=== PATIENT | female | born 1940 | race Caucasian/White ===

== ENCOUNTER 2016-12-17 09:56 | Observation (INO) | payer MEDICARE ==
--- NOTE | 2016-12-17 10:29 | ERPHSYRPT ---
- History of Present Illness Time Seen by Provider: 12/17/16 10:22 Source: patient Exam Limitations: no limitations Patient Subjective Stated Complaint: PT BROUGHT TO ED PER EMS FROM HOME-REPORTS PT FELL THIS MORNING-PT HAS BEEN HAVING AN INCREASE IN [place]ALL[place]-REPORTS DIZZINESS- DENIES NUMBNESS OR TINLGING-DENIES PAIN-DENIES SOB-PT STATES SHE THINKS IT IS BECAUSE OF HER MEDICINE ET WANTS THEM CHANGED Triage Nursing Assessment: PT PALE WARM ET [id number] QUESTIONS CORRECTLY-MOVING ALL EXTREMITIES WITH EASE-RESP NONLABORED-PUPILS REACTIVE Physician History: States became dizzy upon arising and fell hitting head on fan/floor. Denies any LOC, blurred vision or headache but noted some intermittent numbness to L side of face before falling. States numbness only lasted a few seconds. No CP , abdominal pain, SOB, cough or recent illnesses. EMS noted SBP elevated around 200's. States previous episodes of dizziness and falling 3 months ago. Denies any traumatic injuries, no hip, neck, back or extremities pain. Witnessed: unwitnessed Prior Episodes: single episode today Timing/Duration: today Precipitating Factors: other (standing) Context: standing Loss of Consciousness: other (no LOC) Charcter of event(s): almost passed out, other (States difficulty speaking) Allergies/Adverse Reactions: morphine Allergy (Verified 12/17/16 10:11) Penicillins Allergy (Verified 12/17/16 10:11) sulfamethoxazole [From Bactrim] Allergy (Verified 12/17/16 10:11) trimethoprim [From Bactrim] Allergy (Verified 12/17/16 10:11) Home Medications: Amlodipine Besylate 10 mg [Norvasc 10 MG] 10 mg PO DAILY 12/17/16 [History] Aspirin 81 gm Chew [Baby Aspirin 81 mg Chew] 81 mg PO DAILY 12/17/16 [ History] Atenolol 50 mg [Tenormin 50 mg] 50 mg PO DAILY 12/17/16 [History] Bumetanide 0.5 mg PO DAILY 12/17/16 [History] Ferrous Sulfate [Iron] 325 mg PO BID 12/17/16 [History] Fluticasone/Salmeterol [Advair 100-50 Diskus] 1 each IH BID 12/17/16 [History] Fluticasone/Vilanterol [Breo Ellipta 100-25 Mcg INH] 1 each IH DAILY 12/17/16 [ History] Levothyroxine Sodium [Synthroid] 125 mcg PO DAILY 12/17/16 [History] Loratadine 10 mg [Claritin 10 mg] 10 mg PO DAILY 12/17/16 [History] Lorazepam 1 mg [Ativan 1 MG] 1 mg PO TID 12/17/16 [History] Losartan Potassium 50 mg [Cozaar 50 MG] 50 mg PO DAILY 12/17/16 [History] Magnesium 250 mg PO BID 12/17/16 [History] Magnesium Oxide 400 mg [Mag-Ox 400] 400 mg PO DAILY 12/17/16 [History] Meclizine HCl 25 mg [Antivert 25 mg] 25 mg PO TID 12/17/16 [History] Meloxicam 7.5 mg [Mobic 7.5 MG] 7.5 mg PO DAILY 12/17/16 [History] Metformin HCl Xr 500 mg [Glucophage XR 500 MG] 500 mg PO BID 12/17/16 [ History] Nadolol [Corgard] 40 mg PO DAILY 12/17/16 [History] Pantoprazole Sodium [Protonix] 40 mg PO DAILY 12/17/16 [History] Piroxicam [Feldene] 10 mg PO BID 12/17/16 [History] Pravastatin Sodium [Pravachol] 20 mg PO DAILY 12/17/16 [History] Prochlorperazine Maleate 5 mg* [Compazine 5 MG] 5 mg PO TID 12/17/16 [History ] Ranitidine HCl [Zantac] 150 mg PO BID 12/17/16 [History] Sertraline HCl [Zoloft] 100 mg PO DAILY 12/17/16 [History] Hx Tetanus, Diphtheria Vaccination/Date Given: No Hx Influenza Vaccination/Date Given: Yes Hx Pneumococcal Vaccination/Date Given: Yes Immunizations Up to Date: Yes - Past Medical History Pertinent Past Medical History: Yes Neurological History: No Pertinent History, TIA ENT History: Cataracts Cardiac History: Angina, High Cholesterol, Hypertension Respiratory History: Asthma, Bronchitis, CHF, Pneumonia Endocrine Medical History: Diabetes Type II, Hyperthyroidism Musculoskeletal History: Arthritis GI Medical History: GERD, Gallbladder Disease, Other History: No Pertinent History Psycho-Social History: Anxiety, Depression Female Reproductive Disorders: No Pertinent History, Other Other Medical History: Possible TIA after knee replacement. Chronic frequent diarrhea. yeast infection - Past Surgical History Past Surgical History: Yes Neuro Surgical History: No Pertinent History Cardiac: No Pertinent History Respiratory: No Pertinent History Gastrointestinal: Cholecystectomy Genitourinary: No Pertinent History Musculoskeletal: Joint Replacement, Orthopedic Surgery Female Surgical History: No Pertinent History Other Surgical History: bilateral hip replacement, right knee replacemen, héctor cataracts - Social History Smoking Status: Never smoker Exposure to second hand smoke: Yes Drug Use: none Patient Lives Alone: No - Female History Hx Now: No - Review of Systems Constitutional: No Fever, No Chills Eyes: No Symptoms, No Vision Changes, No Double Vision Ears, Nose, & Throat: No Symptoms Respiratory: No Cough, No Dyspnea, No Dyspnea on Exertion (BOGGS) Cardiac: No Chest Pain, No Edema, No Palpitations, No Syncope Abdominal/Gastrointestinal: No Abdominal Pain, No Nausea, No Vomiting, No Diarrhea Genitourinary Symptoms: No Dysuria Musculoskeletal: No Back Pain, No Neck Pain Skin: No Rash Neurological: Dizziness, Speech Changes, No Focal Weakness, No Headache, No Sensory Changes Psychological: No Symptoms Endocrine: No Symptoms All Other Systems: Reviewed and Negative Physical Exam - Nursing Vital Signs Nursing Vital Signs: Initial Vital Signs Temperature 98.3 F Temperature Source Oral Pulse Rate 48 Respiratory Rate 16 Blood Pressure [] 171/48 Pain Intensity 0 - Alexandr Coma Scale Best Eye Response (Alexandr): (4) open spontaneously Best Verbal Response ([place]): (5) oriented Best Motor Response (Alexandr): (6) obeys commands Alexandr Total: 15 - Physical Exam General Appearance: no apparent distress, alert Eye Exam: bilateral eye: PERRL, EOMI Ears, Nose, Throat Exam: normal ENT inspection, pharynx normal, moist mucous membranes Neck Exam: normal inspection, non-tender, supple, full range of motion Respiratory: normal breath sounds, lungs clear, No chest tenderness, No respiratory distress Cardiovascular: regular rate/rhythm, capillary refill <2 sec, No murmur, No pulse deficit Gastrointestinal: soft, No tenderness, No distention, No mass Back Exam: normal inspection, normal range of motion, No CVA tenderness, No vertebral tenderness Extremity Exam: normal inspection, normal range of motion, pelvis stable, No tenderness Mental Status: alert, oriented x 3, cooperative technical assistance consultant Exam: normal speech, PERRL, No facial droop Coordination/Gait: normal finger to nose Motor/Sensory: no motor deficit, no sensory deficit, no pronator drift Skin Exam: normal color, warm, dry, No rash SpO2: 97 Oxygen Delivery: Room Air - Course Nursing assessment & vital signs reviewed: Yes EKG Interpreted by Me: RATE, Sinus Gopal, NORMAL AXIS, NORMAL QRS, Non-specific ST Changes, Other (LVH) - Radiology Exams Chest X-ray Interpretation: Teleradiologist Report, Negative - CT Exams Head CT Interpretation: Negative, Tele-radiologist Report, Other Ordered Tests: Active Orders 24 hr Category Date Time Status Accucheck STAT Care 12/17/16 10:35 Active Tree Marker STAT Care 12/17/16 10:35 Active Clean Catch Urine Specimen STAT Care 12/17/16 10:35 Active EKG-ER Only STAT Care 12/17/16 10:35 Active Orthostatic Vital Signs STAT Care 12/17/16 10:35 Active CHEST 1 VIEW (PORTABLE) Stat Exams 12/17/16 10:37 Completed HEAD WITHOUT CONTRAST [CT] Stat Exams 12/17/16 10:37 Completed CBC W DIFF Stat Lab 12/17/16 10:51 Completed CMP Stat Lab 12/17/16 10:51 Completed CULTURE,URINE Stat Lab 12/17/16 10:51 Received TROPONIN Stat Lab 12/17/16 10:51 Completed UA W/ MICROSCOPIC Stat Lab 12/17/16 10:51 Completed Medication Summary Discontinued Medications Generic Name Dose Route Start Last Admin Trade Name Freq PRN Reason Stop Dose Admin Sodium Chloride 500 mls @ 999 mls/hr 12/17/16 12:32 12/17/16 12:52 Sodium Chloride 0.9% 1000 Ml IV 12/17/16 13:02 999 mls/hr .Q31M STA Administration Sodium Chloride Confirm 12/17/16 12:50 Sodium Chloride 0.9% 1000 Ml Administered 12/17/16 12:51 Dose 1,000 mls @ ud .ROUTE .RUST-MED ONE Lab/Rad Data: Laboratory Result Diagrams 12/17/16 10:51 12/17/16 10:51 Laboratory Results 12/17/16 12/17/16 12/17/16 Range/Units 10:51 10:51 10:51 WBC 5.4 (4.0-10.5) K/mm3 RBC 3.70 L (4.1-5.4) M/mm3 Hgb 10.9 L (12.0-16.0) gm/dl Hct 32.1 L (35-47) % MCV 86.8 (78-100) fl MCH 29.4 (26-32) pg MCHC 34.0 (32-36) g/dl RDW 13.3 (11.5-14.0) % Plt Count 163 (150-450) K/mm3 MPV 12.2 H (6-9.5) fl Gran % 74.4 H (36.0-66.0) % Lymphocytes % 14.2 L (24.0-44.0) % Monocytes % 11.0 (0.0-12.0) % Eosinophils % 0.2 (0.00-5.0) % Basophils % 0.2 (0.0-0.4) % Basophils # 0.01 (0-0.4) Sodium 126 L (136-145) mEq/L Potassium 4.1 (3.5-5.1) mEq/L Chloride 85 L (98-107) mEq/L Carbon Dioxide 31.9 (21-32) mEq/L Anion Gap 13.1 (5-15) MEQ/L BUN 35 H (9-20) mg/dL Creatinine 1.68 H (0.55-1.30) mg/dl Estimated GFR 32 ML/MIN Glucose 112 H (70-110) MG/DL Calcium 9.9 (8.5-10.1) mg/dL Total Bilirubin 0.70 (0.2-1.0) mg/dL AST 23 (15-37) U/L ALT 16 (12-78) U/L Alkaline Phosphatase 46 (46-116) U/L Troponin I 0.027 (0.000-0.056) ng/ml Serum Total Protein 8.7 H (6.4-8.2) gm/dL Albumin 4.1 (3.4-5.0) g/dL Ur Collection Type CCMS Urine Color COLORLESS (YELLOW) Urine Appearance CLEAR (CLEAR) Urine pH 7.0 (5-6) Ur Specific [place] 1.015 (1.005-1.025) Urine Protein 30 (Negative) Urine Glucose (UA) NEGATIVE (NEGATIVE) mg/dL Urine Ketones NEGATIVE (NEGATIVE) Urine Nitrite NEGATIVE (NEGATIVE) Urine Bilirubin NEGATIVE (NEGATIVE) Urine Urobilinogen 0.2 (0-1) mg/dL Urine WBC (Auto) TRACE (NEGATIVE) Urine RBC (Auto) TRACE HEMOLYZED (0-5) [place]ul Urine Microscopic RBC 0-2 (0-2) /HPF Urine Microscopic WBC 2-5 (0-5) /HPF Ur Epithelial Cells FEW (FEW) /HPF Urine Bacteria MANY (NEGATIVE) /HPF Specimen Received 12/17 1100 - Progress Progress: improved Progress Note: 12/17/16 12:01 12/17/16 12:34 Pt. given NS. Discussed with : Hollis (Notified and agreed to admission) Counseled pt/family regarding: lab results, diagnosis, rad results - Departure Time of Disposition: 12:52 Departure Disposition: Observation Clinical Impression: Hyponatremia, Dizziness Clinical Impression: (Ruled Out): Chest pain Condition: Stable Critical Care Time: No Referrals: ITZEL MARTINEZ MD [Primary Care Provider] -
[2016-12-17 11:02] LABS: BASOPHIL % 0.2 % (0.0-0.4); Eosinophil % 0.2 % (0.00-5.0); Granulocytes % 74.4 % (36.0-66.0); Lymphocytes % 14.2 % (24.0-44.0); Mean Cell Volume 86.8 fl (78-100); Mean Platelet Volume 12.2 fl (6-9.5); Platelet Count 163 K/mm3 (150-450); Red Cell Distribution Width 13.3 % (11.5-14.0); White Blood Count 5.4 K/mm3 (4.0-10.5)
[2016-12-17 11:03] LABS: Mean Corpuscular Hemoglobin 29.4 pg (26-32)
[2016-12-17 11:11] LABS: Collection Type CCMS
[2016-12-17 11:12] LABS: Bacteria MANY /HPF (NEGATIVE); COMPLETE URINE MICROSCOPIC? YES; Epithelial Cells FEW /HPF (FEW)
[2016-12-17 11:13] LABS: ADD URINE CULTURE? YES (NO)
--- NOTE | 2016-12-17 11:23 | XRAY ---
Indication: Posterior head injury following fall. Multiple contiguous axial images obtained through the head without contrast. Comparison: January 25, 2016. Stable age-appropriate global atrophy and ventricular prominence. No acute intracranial hemorrhage, abnormal extra axial fluid collection, or mass effect. Fourth ventricle is midline. Bony calvarium intact. Visualized paranasal sinuses and mastoid air cells are pneumatized and clear. Impression: Stable atrophy and ventricular prominence. No new/acute intracranial abnormalities. CTDI 51.37
--- NOTE | 2016-12-17 11:26 | XRAY ---
Indication: Cough. Status post fall. Comparison: April 21, 2016. Portable chest again demonstrates normal heart and lungs. Bony thorax intact with mild osteopenia. No new/acute findings.
[2016-12-17 11:31] LABS: ALBUMIN 4.1 g/dL (3.4-5.0); ANION GAP 13.1 MEQ/L (5-15); BILIRUBIN,TOTAL 0.7 mg/dL (0.2-1.0); Carbon Dioxide 31.9 mEq/L (21-32); Potassium 4.1 mEq/L (3.5-5.1); TROPONIN 0.027 ng/ml (0.000-0.056); Total Protein 8.7 gm/dL (6.4-8.2)
[2016-12-17] MEDS ORDERED: Sodium Chloride 0.9% 1000 ML 1,000 ML ONE (12:50)
[2016-12-17] MEDS: Sodium Chloride 0.9% 1000 ML 1,000 ML IV SCH (17:11)
[2016-12-17] MEDS ORDERED: Ativan 0.5 MG PO PRN (19:28)
[2016-12-17] MEDS ORDERED: ADVAIR HFA 45/21 COMMON CANISTER IH SCH (20:00)
[2016-12-17] MEDS: Compazine 5 MG PO SCH (20:56)
[2016-12-17] MEDS: FEOSOL 325 MG PO SCH (20:56)
[2016-12-17] MEDS: ANTIVERT 25 MG PO SCH (20:56)
[2016-12-17] MEDS: Pepcid 20 MG PO SCH (20:56)
[2016-12-17] MEDS ORDERED: ZOCOR 20MG PO SCH (22:00)
[2016-12-18] MEDS: Sodium Chloride 0.9% 1000 ML 1,000 ML IV SCH (04:41)
[2016-12-18 06:58] LABS: ANION GAP 11.4 MEQ/L (5-15); Carbon Dioxide 29.3 mEq/L (21-32); Potassium 3.7 mEq/L (3.5-5.1)
[2016-12-18] MEDS ORDERED: Glucophage XR 500 MG PO SCH (08:00)
[2016-12-18] MEDS: FEOSOL 325 MG PO SCH (09:52)
[2016-12-18] MEDS: Pepcid 20 MG PO SCH (09:52)
[2016-12-18] MEDS: ANTIVERT 25 MG PO SCH (09:53)
[2016-12-18] MEDS: Compazine 5 MG PO SCH (09:53)
[2016-12-18] MEDS: TENORMIN 50 MG PO SCH ×2 (09:56→12:24)
[2016-12-18] MEDS ORDERED: Mobic 7.5 MG PO SCH (10:00)
[2016-12-18] MEDS ORDERED: ECOTRIN 81 MG PO SCH (10:00)
[2016-12-18] MEDS ORDERED: NON-FORMULARY ITEM (Sertraline Hcl [Zoloft] 100 MG) PO SCH (10:00)
[2016-12-18] MEDS ORDERED: MAG-OX 400 PO SCH (10:00)
[2016-12-18] MEDS ORDERED: BABY ASPIRIN 81 MG CHEW PO SCH (10:00)
[2016-12-18] MEDS ORDERED: ZOLOFT 50 MG TABLET PO SCH (10:00)
[2016-12-18] MEDS ORDERED: NORVASC 5 MG PO SCH (10:00)
[2016-12-18] MEDS ORDERED: Protonix 40MG Tablet PO SCH (10:00)
[2016-12-18] MEDS ORDERED: CLARITIN 10 MG PO SCH (10:00)
[2016-12-18] MEDS ORDERED: Advair Hfa 115/21 Common canister IH SCH (10:00)
[2016-12-18] MEDS ORDERED: NON-FORMULARY ITEM (Amlodipine Besylate 10 Mg [Norvasc 10 Mg] 10 MG) PO SCH (10:00)
[2016-12-18] MEDS ORDERED: NADOLOL PO SCH (10:00)
[2016-12-18] MEDS ORDERED: BUMETANIDE 0.5 MG PO SCH (10:00)
[2016-12-18] MEDS ORDERED: BUMEX 1 MG PO SCH (10:00)
[2016-12-18] MEDS ORDERED: Cozaar 50 MG PO SCH (10:00)
[2016-12-18] MEDS ORDERED: SYNTHROID 125 MCG PO SCH (10:00)
[2016-12-18 12:25] VITALS: PULSE 58
[2016-12-18 12:28] VITALS: BP 176/80; O2SAT 96
--- NOTE | 2016-12-18 12:48 | PCM.SSS ---
History of Present Illness - Chief Complaint Chief Complaint: fall at home History of Present Illness: is a 75 year old female.States became dizzy upon arising and fell hitting head on fan/floor. Denies any LOC, blurred vision or headache but noted some intermittent numbness to L side of face before falling. States numbness only lasted a few seconds. No CP, abdominal pain, SOB, cough or recent illnesses. EMS noted SBP elevated around 200's. States previous episodes of dizziness and falling 3 months ago. Denies any traumatic injuries, no hip, neck, back or extremities pain. - Review of Systems Constitutional: No Fever, No Chills Eyes: No Symptoms Ears, Nose, & Throat: No Symptoms Respiratory: No Cough, No Short Of Breath Cardiac: No Chest Pain, No Edema, No Syncope Abdominal/Gastrointestinal: No Abdominal Pain, No Nausea, No Vomiting, No Diarrhea Genitourinary Symptoms: No Dysuria Musculoskeletal: No Back Pain, No Neck Pain Skin: No Rash Neurological: No Dizziness, No Focal Weakness, No Sensory Changes Psychological: No Symptoms Endocrine: No Symptoms Hematologic/Lymphatic: No Symptoms Immunological/Allergic: No Symptoms Medications & Allergies Home Medications: Home Medication List Amlodipine Besylate 10 mg [Norvasc 10 MG] 10 mg PO DAILY 12/17/16 [History Confirmed 12/17/16] Aspirin 81 gm Chew [Baby Aspirin 81 mg Chew] 81 mg PO DAILY 12/17/16 [ History Confirmed 12/17/16] Atenolol 50 mg [Tenormin 50 mg] 50 mg PO DAILY 12/17/16 [History Confirmed 12/17/16] Bumetanide 0.5 mg PO DAILY 12/17/16 [History Confirmed 12/17/16] Ferrous Sulfate [Iron] 325 mg PO BID 12/17/16 [History Confirmed 12/17/16] Fluticasone/Salmeterol 45/21 [Advair Hfa 45-21 Mcg Inhaler] 2 puffs IH BID 12/17/16 [History Confirmed 12/17/16] Fluticasone/Vilanterol [Breo Ellipta 100-25 Mcg INH] 1 each IH DAILY 12/17/16 [ History Confirmed 12/17/16] Levothyroxine Sodium [Synthroid] 125 mcg PO DAILY 12/17/16 [History Confirmed ] Loratadine 10 mg [Claritin 10 mg] 10 mg PO DAILY 12/17/16 [History Confirmed 12/17/16] Lorazepam 1 mg [Ativan 1 MG] 0.5 mg PO BID PRN 12/17/16 [History Confirmed 12/17/16] Losartan Potassium 50 mg [Cozaar 50 MG] 50 mg PO DAILY 12/17/16 [History Confirmed 12/17/16] Magnesium 250 mg PO BID 12/17/16 [History Confirmed 12/17/16] Magnesium Oxide 400 mg [Mag-Ox 400] 400 mg PO DAILY 12/17/16 [History Confirmed 12/17/16] Meclizine HCl 25 mg [Antivert 25 mg] 25 mg PO TID 12/17/16 [History Confirmed 12/17/16] Meloxicam 7.5 mg [Mobic 7.5 MG] 7.5 mg PO DAILY 12/17/16 [History Confirmed 12/17/16] Metformin HCl Xr 500 mg [Glucophage XR 500 MG] 500 mg PO BID 12/17/16 [ History Confirmed 12/17/16] Nadolol [Corgard] 40 mg PO DAILY 12/17/16 [History Confirmed 12/17/16] Pantoprazole Sodium [Protonix] 40 mg PO DAILY 12/17/16 [History Confirmed ] Piroxicam [Feldene] 10 mg PO BID 12/17/16 [History Confirmed 12/17/16] Pravastatin Sodium [Pravachol] 20 mg PO HS 12/17/16 [History Confirmed 12/17/16] Prochlorperazine Maleate 5 mg* [Compazine 5 MG] 5 mg PO TID 12/17/16 [ History Confirmed 12/17/16] Ranitidine HCl [Zantac] 150 mg PO BID 12/17/16 [History Confirmed 12/17/16] Sertraline HCl [Zoloft] 100 mg PO DAILY 12/17/16 [History Confirmed 12/17/16] Allergies/Adverse Reactions: Allergies Allergy/AdvReac Type Severity Reaction Status Date / Time morphine Allergy Verified 12/17/16 10:11 Penicillins Allergy Verified 12/17/16 10:11 sulfamethoxazole Allergy Verified 12/17/16 10:11 [From Bactrim] trimethoprim [From Bactrim] Allergy Verified 12/17/16 10:11 - Past Medical History Past Medical History: Yes Neurological History: No Pertinent History, TIA ENT History: Cataracts Cardiac History: Angina, High Cholesterol, Hypertension Respiratory History: Asthma, Bronchitis, CHF, Pneumonia Endocrine Medical History: Diabetes Type II, Hyperthyroidism Musculoskelatal History: Arthritis GI Medical History: GERD, Gallbladder Disease, Other History: No Pertinent History Pyscho-Social History: Anxiety, Depression Reproductive Disorders: No Pertinent History, Other Comment: Possible TIA after knee replacement. Chronic frequent diarrhea. yeast infection - Female History Are you now?: No - Past Surgical History Past Surgical History: Yes Neuro Surgical History: No Pertinent History Cardiac History: Cardiac Catheterization Respiratory Surgery: No Pertinent History GI Surgical History: Cholecystectomy Genitourinary Surgical Hx: No Pertinent History Musculskeletal Surgical Hx: Joint Replacement, Orthopedic Surgery Female Surgical History: No Pertinent History Other Surgical History: bilateral hip replacement, right knee replacemen, héctor cataracts - Social History Smoking Status: Never smoker Exposure to second hand smoke: Yes Alcohol: None Drug Use: none - Physical Exam Vital Signs: Vital Signs - 24 hr Temp Pulse Resp BP BP Pulse Ox 12/18/16 12:27 97.4 F 58 L 20 176/80 96 12/18/16 12:24 58 L 12/18/16 09:56 52 L 145/66 12/18/16 07:12 99 F 55 L 20 168/65 95 12/18/16 07:00 52 L 12/18/16 05:54 19 12/18/16 03:58 98.3 F 46 L 19 156/77 92 L 12/18/16 02:00 19 12/18/16 00:00 98.3 F 45 L 19 166/74 90 L 12/17/16 22:00 16 12/17/16 20:00 98.1 F 47 L 16 185/91 93 L 12/17/16 19:54 47 L 18 94 L 12/17/16 15:13 98.3 F 57 L 18 168/74 93 L 12/17/16 14:53 98.3 F 57 L 18 168/74 93 L 12/17/16 14:26 97 12/17/16 14:03 48 L 16 171/48 98 General Appearance: no apparent distress, alert Neurologic Exam: alert, oriented x 3, cooperative, normal mood/affect, nml cerebellar function, nml station & gait, sensation nml, No motor deficits Eye Exam: PERRL/EOMI, eyes nml inspection Ears, Nose, Throat Exam: normal ENT inspection, TMs normal, pharynx normal, moist mucous membranes Neck Exam: normal inspection, non-tender, supple, full range of motion Respiratory Exam: normal breath sounds, lungs clear, No respiratory distress Cardiovascular Exam: regular rate/rhythm, normal heart sounds, normal peripheral pulses Gastrointestinal/Abdomen Exam: soft, normal bowel sounds, No tenderness, No mass Back Exam: normal inspection, normal range of motion, No CVA tenderness, No vertebral tenderness Extremity Exam: normal inspection, normal range of motion, pelvis stable Skin Exam: normal color, warm, dry, No rash Lymphatic Exam: No adenopathy Results - Labs Lab/Micro Results: Lab Results-Last 24 Hours 12/18/16 Range/Units 05:48 Sodium 131 L (136-145) mEq/L Potassium 3.7 (3.5-5.1) mEq/L Chloride 94 L (98-107) mEq/L Carbon Dioxide 29.3 (21-32) mEq/L Anion Gap 11.4 (5-15) MEQ/L BUN 30 H (9-20) mg/dL Creatinine 1.35 H (0.55-1.30) mg/dl Estimated GFR 41 ML/MIN Glucose 88 (70-110) MG/DL Calcium 9.2 (8.5-10.1) mg/dL - Other Procedures and Tests Respiratory Therapy 12/18/16 07:00 Respiratory MDI Q12H Assessment/Plan (1) Dizziness Current Visit: Yes Status: Acute Assessment & Plan: resolved Code(s): R42 - DIZZINESS AND GIDDINESS (2) Hyponatremia Current Visit: Yes Status: Acute Assessment & Plan: resolved Code(s): E87.1 - HYPO-OSMOLALITY AND HYPONATREMIA (3) Fall Current Visit: No Status: Acute Qualifiers: Encounter type: subsequent encounter Qualified Code(s): W19.XXXD - Unspecified fall, subsequent encounter Code(s): W19.XXXA - UNSPECIFIED FALL, INITIAL ENCOUNTER Hospital Summary - Vitals & Intake/Output Vital Signs: Vital Signs Temperature 97.4 F 12/18/16 12:27 Pulse Rate 58 L 12/18/16 12:27 Respiratory Rate 20 12/18/16 12:27 Blood Pressure 176/80 12/18/16 12:27 O2 Sat by Pulse Oximetry 96 12/18/16 12:27 Intake & Output: Intake & Output 12/16/16 12/17/16 12/18/16 12/19/16 11:59 11:59 11:59 11:59 Intake Total 2597 Output Total 1400 Balance 1197 Weight 83.036 kg - Lab Result Diagrams: 12/17/16 10:51 12/18/16 05:48 Lab Results-Last 24 Hrs: Lab Results-Last 24 Hours 12/18/16 Range/Units 05:48 Sodium 131 L (136-145) mEq/L Potassium 3.7 (3.5-5.1) mEq/L Chloride 94 L (98-107) mEq/L Carbon Dioxide 29.3 (21-32) mEq/L Anion Gap 11.4 (5-15) MEQ/L BUN 30 H (9-20) mg/dL Creatinine 1.35 H (0.55-1.30) mg/dl Estimated GFR 41 ML/MIN Glucose 88 (70-110) MG/DL Calcium 9.2 (8.5-10.1) mg/dL - Procedures and Test Procedures and Tests throughout Hospitalization: Therapy Orders & Screens 12/18/16 07:00 Respiratory MDI Q12H Comment: Diagnosis: Hyponatremia - Discharge Disposition: Home, Self-Care Condition: Stable Prescriptions: No Action Ranitidine HCl [Zantac] 150 mg PO BID Ferrous Sulfate [Iron] 325 mg PO BID Pravastatin Sodium [Pravachol] 20 mg PO HS Meclizine HCl 25 mg [Antivert 25 mg] 25 mg PO TID Fluticasone/Vilanterol [Breo Ellipta 100-25 Mcg INH] 1 each IH DAILY Bumetanide 0.5 mg PO DAILY Levothyroxine Sodium [Synthroid] 125 mcg PO DAILY Sertraline HCl [Zoloft] 100 mg PO DAILY Prochlorperazine Maleate 5 mg* [Compazine 5 MG] 5 mg PO TID Meloxicam 7.5 mg [Mobic 7.5 MG] 7.5 mg PO DAILY Atenolol 50 mg [Tenormin 50 mg] 50 mg PO DAILY Nadolol [Corgard] 40 mg PO DAILY Lorazepam 1 mg [Ativan 1 MG] 0.5 mg PO BID PRN PRN Reason: Anxiety Amlodipine Besylate 10 mg [Norvasc 10 MG] 10 mg PO DAILY Piroxicam [Feldene] 10 mg PO BID Magnesium Oxide 400 mg [Mag-Ox 400] 400 mg PO DAILY Losartan Potassium 50 mg [Cozaar 50 MG] 50 mg PO DAILY Aspirin 81 gm Chew [Baby Aspirin 81 mg Chew] 81 mg PO DAILY Pantoprazole Sodium [Protonix] 40 mg PO DAILY Magnesium 250 mg PO BID Loratadine 10 mg [Claritin 10 mg] 10 mg PO DAILY Metformin HCl Xr 500 mg [Glucophage XR 500 MG] 500 mg PO BID Fluticasone/Salmeterol 45/21 [Advair Hfa 45-21 Mcg Inhaler] 2 puffs IH BID Follow up with: ITZEL MARTINEZ MD [Primary Care Provider] -
== END 2016-12-18 13:35 | disposition home or self-care (01) ==
LOC: ED 09:56 → MED SURG 14:45
PROVIDERS: ADMIT General Practice; ATTEND General Practice
DX: R42 Dizziness and giddiness (principal); E87.1 Hypo-osmolality and hyponatremia; W19.XXXD Unspecified fall, subsequent encounter; I10 Essential (primary) hypertension; I50.9 Heart failure, unspecified; J45.909 Unspecified asthma, uncomplicated; E11.9 Type 2 diabetes mellitus without complications; E05.90 Thyrotoxicosis, unspecified without thyrotoxic crisis or storm; M19.90 Unspecified osteoarthritis, unspecified site; F41.8 Other specified anxiety disorders; Z86.73 Personal history of transient ischemic attack (TIA), and cerebral infarction without residual deficits
CPT/HCPCS: 36000; 36415; 70450; 71010; 80048; 80053; 81000; 82962; 84484; 85025; 87077; 87086; 87186; 93005; 93041; 94640; 94760; 96360; 96361; 99285; G0378; A9270-GY

== ENCOUNTER 2017-02-02 08:30 | Inpatient (IN) | payer MEDICARE ==
[2017-02-02 08:55] LABS: Mean Cell Volume 92.5 fl (78-100); Mean Corpuscular Hemoglobin 29.7 pg (26-32); Mean Platelet Volume 12.5 fl (6-9.5); Platelet Count 133 K/mm3 (150-450); Red Cell Distribution Width 15.1 % (11.5-14.0); White Blood Count 5.2 K/mm3 (4.0-10.5)
--- NOTE | 2017-02-02 08:55 | ERPHSYRPT ---
- History of Present Illness Time Seen by Provider: 02/02/17 08:42 Source: patient, EMS Patient Subjective Stated Complaint: Pt states "I was getting up off of the toilet when I fell back down onto the pot. My neck hurts.". Dr. Martinez Triage Nursing Assessment: Pt alert and oriented to month, time, but states the year is 2019. Pt has multiple bruises in multiple stages of healing. PT complaining of left sided neck pain upon movement and left sided pain upon palpation. Pt able to speak in full sentences, no difficulty with respirations. CSM X 4 Physician History: CC: falls HX: 76 y/o patient lives alone in apartment with frequent C visits. She has frequent falls and is picked up off the floor frequently by EMS. She has a very wobbily gait. Today she fell backwards on the toilet and could not get up so she summoned EMS. She complains of left hip pain and neck pain. Disoriented to the year. No other complaints. She states she does not want to go to the [place]. Occurred: this morning Loss of Consciousness: no loss of consciousness Allergies/Adverse Reactions: morphine Allergy (Verified 02/02/17 08:42) Penicillins Allergy (Verified 02/02/17 08:42) sulfamethoxazole [From Bactrim] Allergy (Verified 02/02/17 08:42) trimethoprim [From Bactrim] Allergy (Verified 02/02/17 08:42) Home Medications: Amlodipine Besylate 10 mg [Norvasc 10 MG] 10 mg PO DAILY 12/17/16 [History] Aspirin 81 gm Chew [Baby Aspirin 81 mg Chew] 81 mg PO DAILY 12/17/16 [ History] Atenolol 50 mg [Tenormin 50 mg] 50 mg PO DAILY 12/17/16 [History] Bumetanide 0.5 mg PO DAILY 12/17/16 [History] Ferrous Sulfate [Iron] 325 mg PO BID 12/17/16 [History] Fluticasone/Salmeterol 45/21 [Advair Hfa 45-21 Mcg Inhaler] 2 puffs IH BID 12/17/16 [History] Fluticasone/Vilanterol [Breo Ellipta 100-25 Mcg INH] 1 each IH DAILY 12/17/16 [ History] Levothyroxine Sodium [Synthroid] 125 mcg PO DAILY 12/17/16 [History] Loratadine 10 mg [Claritin 10 mg] 10 mg PO DAILY 12/17/16 [History] Lorazepam 1 mg [Ativan 1 MG] 0.5 mg PO BID PRN 12/17/16 [History] Losartan Potassium 50 mg [Cozaar 50 MG] 50 mg PO DAILY 12/17/16 [History] Magnesium 250 mg PO BID 12/17/16 [History] Magnesium Oxide 400 mg [Mag-Ox 400] 400 mg PO DAILY 12/17/16 [History] Meclizine HCl 25 mg [Antivert 25 mg] 25 mg PO TID 12/17/16 [History] Meloxicam 7.5 mg [Mobic 7.5 MG] 7.5 mg PO DAILY 12/17/16 [History] Metformin HCl Xr 500 mg [Glucophage XR 500 MG] 500 mg PO BID 12/17/16 [ History] Nadolol [Corgard] 40 mg PO DAILY 12/17/16 [History] Pantoprazole Sodium [Protonix] 40 mg PO DAILY 12/17/16 [History] Piroxicam [Feldene] 10 mg PO BID 12/17/16 [History] Pravastatin Sodium [Pravachol] 20 mg PO HS 12/17/16 [History] Prochlorperazine Maleate 5 mg* [Compazine 5 MG] 5 mg PO TID 12/17/16 [History ] Ranitidine HCl [Zantac] 150 mg PO BID 12/17/16 [History] Sertraline HCl [Zoloft] 100 mg PO DAILY 12/17/16 [History] Topiramate [Topamax] 25 mg PO 02/02/17 [History] Hx Tetanus, Diphtheria Vaccination/Date Given: Yes Hx Influenza Vaccination/Date Given: Yes Hx Pneumococcal Vaccination/Date Given: Yes Immunizations Up to Date: Yes - Review of Systems Constitutional: No Fever, No Chills Eyes: No Vision Changes Ears, Nose, & Throat: No Symptoms Respiratory: No Dyspnea Cardiac: No Chest Pain Abdominal/Gastrointestinal: No Abdominal Pain, No Nausea, No Vomiting Musculoskeletal: Neck Pain, Fall, Joint Pain (left hip), No Back Pain Neurological: No Focal Weakness, No Headache, No Parasthesia All Other Systems: Reviewed and Negative - Past Medical History Pertinent Past Medical History: Yes Neurological History: No Pertinent History, TIA ENT History: Cataracts Cardiac History: Angina, High Cholesterol, Hypertension Respiratory History: Asthma, Bronchitis, CHF, Pneumonia Endocrine Medical History: Diabetes Type II, Hyperthyroidism Musculoskeletal History: Arthritis GI Medical History: GERD, Gallbladder Disease, Other History: No Pertinent History Psycho-Social History: Anxiety, Depression Female Reproductive Disorders: No Pertinent History, Other Other Medical History: Possible TIA after knee replacement. Chronic frequent diarrhea. yeast infection - Past Surgical History Past Surgical History: Yes Neuro Surgical History: No Pertinent History Cardiac: Cardiac Catheterization Respiratory: No Pertinent History Gastrointestinal: Cholecystectomy Genitourinary: No Pertinent History Musculoskeletal: Joint Replacement, Orthopedic Surgery Female Surgical History: No Pertinent History Other Surgical History: bilateral hip replacement, right knee replacemen, héctor cataracts - Social History Smoking Status: Never smoker Exposure to second hand smoke: Yes Drug Use: none Patient Lives Alone: Yes (lives alone in an apartment) - Female History Hx Now: No - Nursing Vital Signs Nursing Vital Signs: Initial Vital Signs Temperature 98.4 F 02/02/17 08:31 Pulse Rate 56 L 02/02/17 08:31 Respiratory Rate 18 02/02/17 08:31 Blood Pressure 192/75 02/02/17 08:31 O2 Sat by Pulse Oximetry 94 L 02/02/17 08:31 Pain Scale Pain Intensity 0 - Alexandr Coma Score Best Eye Response (Jewell): (4) open spontaneously Best Verbal Response (Alexandr): (5) oriented Best Motor Response (Alexandr): (6) obeys commands Alexandr Total: 15 - Physical Exam General Appearance: alert Head Injury: no evidence of injury Eye Exam: PERRL/EOMI ENT Exam: airway nml Neck Exam: mid-line tenderness, c-collar in place Respiratory/Chest Exam: normal breath sounds, No chest tenderness Cardiovascular Exam: normal heart sounds, regular rate/rhythm Gastrointestinal Exam: soft, No tenderness, No distention Extremity Exam: tenderness (left hip, bruising left hip area) Neurologic Exam: alert, cooperative, other (2019), No motor deficits Skin Exam: warm, dry, No rash SpO2 Interpretation: normal SpO2: 94 Oxygen Delivery: Room Air - Course Nursing assessment & vital signs reviewed: Yes - Radiology Exams pevlis, cxr, left femur X-ray Interpretation: Reviewed by me, No Fracture Ordered Tests: Active Orders 24 hr Category Date Time Status IV Insertion STAT Care 02/02/17 08:47 Active cath [Cath for Specimen-Straight] STAT Care 02/02/17 09:39 Active Regular Diet Diet 02/02/17 Lunch Active CERVICAL SPINE WO CONTRAST [CT] Stat Exams 02/02/17 08:46 Taken CHEST 1 VIEW (PORTABLE) Stat Exams 02/02/17 08:45 Taken FEMUR Stat Exams 02/02/17 08:46 Taken HEAD WITHOUT CONTRAST [CT] Stat Exams 02/02/17 08:46 Taken PELVIS (1 OR 2 VIEWS) Stat Exams 02/02/17 08:46 Taken CBC W DIFF Stat Lab 02/02/17 09:00 Completed CMP Stat Lab 02/02/17 09:00 Completed CULTURE,URINE Stat Lab 02/02/17 09:30 Received Manual Differential NC Stat Lab 02/02/17 09:00 Completed UA W/ MICROSCOPIC Stat Lab 02/02/17 09:30 Completed Medication Summary Discontinued Medications Generic Name Dose Route Start Last Admin Trade Name Freq PRN Reason Stop Dose Admin Acetaminophen 650 mg 02/02/17 10:19 02/02/17 10:23 Tylenol 325 Mg PO 02/02/17 10:20 650 mg STAT ONE Administration Acetaminophen Confirm 02/02/17 10:22 Tylenol 325 Mg Administered 02/02/17 10:23 Dose 650 mg .ROUTE .[facility] Lab/Rad Data: Laboratory Result Diagrams 02/02/17 09:00 02/02/17 09:00 Laboratory Results 02/02/17 02/02/17 02/02/17 Range/Units 09:30 09:00 09:00 WBC 5.2 (4.0-10.5) K/mm3 RBC 3.60 L (4.1-5.4) M/mm3 Hgb 10.7 L (12.0-16.0) gm/dl Hct 33.3 L (35-47) % MCV 92.5 (78-100) fl MCH 29.7 (26-32) pg MCHC 32.1 (32-36) g/dl RDW 15.1 H (11.5-14.0) % Plt Count 133 L (150-450) K/mm3 MPV 12.5 H (6-9.5) fl Sodium 140 (136-145) mEq/L Potassium 4.1 (3.5-5.1) mEq/L Chloride 102 (98-107) mEq/L Carbon Dioxide 22.2 (21-32) mEq/L Anion Gap 19.8 H (5-15) MEQ/L BUN 15 (9-20) mg/dL Creatinine 1.28 (0.55-1.30) mg/dl Estimated GFR 43 ML/MIN Glucose 81 (70-110) MG/DL Calcium 10.0 (8.5-10.1) mg/dL Total Bilirubin 0.60 (0.2-1.0) mg/dL AST 18 (15-37) U/L ALT 15 (12-78) U/L Alkaline Phosphatase 47 (46-116) U/L Serum Total Protein 8.1 (6.4-8.2) gm/dL Albumin 4.2 (3.4-5.0) g/dL Ur Collection Type CATH Urine Color YELLOW (YELLOW) Urine Appearance HAZY (CLEAR) Urine pH 7.0 (5-6) Ur Specific [place] 1.010 (1.005-1.025) Urine Protein 3+ (Negative) Urine Ketones NEGATIVE (NEGATIVE) Urine Blood 50 (0-5) Sunny/ul Urine Nitrite POSITIVE (NEGATIVE) Urine Bilirubin NEGATIVE (NEGATIVE) Urine Urobilinogen NORMAL (0-1) mg/dL Ur Leukocyte Esterase TRACE (NEGATIVE) Urine Microscopic WBC 5-10 (0-5) /HPF Urine Bacteria PACKED (NEGATIVE) /HPF Urine Glucose NEGATIVE (NEGATIVE) mg/dL Specimen Received 02/02/17 0930 - Progress Progress Note: 02/02/17 10:01 CT brain: [email or web address] 9:43 AM 02/02/2017: Stable nonacute senile brain compared to 12/17/16. CT cervical: [email or web address] 9:46 AM 02/02/2017: Compared to 04/20/16. Stable C5-C7 DDD. No new/acute findings. 02/02/17 10:33 Pt too unsteady to ambulate safely per nurses. She is eating meal. No fractures seen on prelim xrays. Discussed rehab. Called Dr Martinez. She has been at [facility] in recent past. Will place in obs for UTI/abtx and consult social services specialist. Counseled pt/family regarding: lab results, diagnosis, need for follow-up, rad results - Departure Time of Disposition: 10:34 Departure Disposition: Observation Clinical Impression: UTI (urinary tract infection), Frequent falls, Cervical strain, Contusion of left hip Condition: Stable Critical Care Time: No Referrals: ITZEL MARTINEZ MD [Primary Care Provider] -
[2017-02-02 09:25] LABS: ALBUMIN 4.2 g/dL (3.4-5.0); ANION GAP 19.8 MEQ/L (5-15); BILIRUBIN,TOTAL 0.6 mg/dL (0.2-1.0); Carbon Dioxide 22.2 mEq/L (21-32); Potassium 4.1 mEq/L (3.5-5.1); Total Protein 8.1 gm/dL (6.4-8.2)
[2017-02-02 09:38] LABS: ADD URINE CULTURE? YES (NO); Bilirubin NEGATIVE (NEGATIVE); Blood 50 Ery/ul (0-5); Collection Type CATH; Glucose NEGATIVE (NEGATIVE); Leukocyte Esterase TRACE (NEGATIVE)
[2017-02-02 09:39] LABS: COMPLETE URINE MICROSCOPIC? YES
[2017-02-02 10:02] LABS: Bacteria PACKED /HPF (NEGATIVE)
[2017-02-02] MEDS ORDERED: TYLENOL 325 MG PO ONE (10:19)
[2017-02-02] MEDS ORDERED: TYLENOL 325 MG ONE (10:22)
[2017-02-02 10:33] LABS: ANISOCYTOSIS 1+; Eosinophil 1 % (0.00-3.0); Platelet Estimate NORMAL (NORMAL); Poikilocytosis 1+; Total Cells Counted 100
[2017-02-02] MEDS ORDERED: ROCEPHIN 1 Gm-D5w 50 ml Bag** 1 G/50 ML IVPB IV STA (10:35)
[2017-02-02] MEDS ORDERED: ROCEPHIN 1 Gm-D5w 50 ml Bag** 1 G/50 ML IVPB IV ONE (10:41)
[2017-02-02] MEDS ORDERED: TYLENOL 325 MG PO PRN (11:09)
[2017-02-02] MEDS ORDERED: NovoLOG Insulin SQ PRN (11:09)
[2017-02-02] MEDS ORDERED: Nitrostat 0.4 MG Tablet SL PRN (15:18)
[2017-02-02] MEDS: Cozaar 50 MG PO SCH (16:00)
[2017-02-02] MEDS: Compazine 5 MG PO SCH ×2 (16:00→21:14)
[2017-02-02] MEDS: TENORMIN 50 MG PO SCH (16:00)
[2017-02-02] MEDS: ECOTRIN 81 MG PO SCH (16:00)
[2017-02-02] MEDS: Protonix 40MG Tablet PO SCH (16:00)
[2017-02-02] MEDS: SYNTHROID 125 MCG PO SCH (16:01)
[2017-02-02] MEDS: ZOLOFT 50 MG TABLET PO SCH (16:02)
[2017-02-02] MEDS: CLARITIN 10 MG PO SCH (16:05)
[2017-02-02] MEDS: NORVASC 5 MG PO SCH (16:05)
[2017-02-02] MEDS: NON-FORMULARY ITEM PO SCH (16:05)
--- NOTE | 2017-02-02 16:54 | XRAY ---
Indication: Neck pain following fall. Multiple contiguous axial images obtained through the cervical spine. Sagittal and coronal reformatted images obtained. Comparison: April 20, 2016. Axial images negative for acute fracture, suspicious bony lesions, or spinal canal stenosis. Stable minimal C5-C7 degenerative endplate spurring and multilevel mild bilateral degenerative facet arthropathy. Sagittal and coronal reformatted images demonstrates slight straightening of the cervical lordosis, positional versus paraspinal spasm. Stable mild C5-C7 degenerative disc space narrowing. No acute compression fracture, subluxation, or jump facet. Normal-appearing craniocervical junction. Visualized noncontrasted soft tissues including lung apices unremarkable. CT head reported separately. Impression: Again negative for acute fracture/subluxation. Stable C5-C7 degenerative disc disease. CTDI 67.63
--- NOTE | 2017-02-02 16:55 | XRAY ---
Indication: Altered mental status. Falls. Multiple contiguous axial images obtained through the head without contrast. Comparison: December 17, 2016. Stable age-appropriate global atrophy and ventricular prominence. No acute intracranial hemorrhage, abnormal extra axial fluid collection, or mass effect. Fourth ventricle is midline. Bony calvarium intact. Visualized paranasal sinuses and mastoid air cells are pneumatized and clear. Impression: Nonacute senile brain. CTDI 50.62
--- NOTE | 2017-02-02 16:57 | XRAY ---
Indication: Multiple falls. Comparison: December 17, 2016. Portable chest again demonstrates normal heart and lungs. Bony thorax intact.
--- NOTE | 2017-02-02 16:59 | XRAY ---
Indication: Left hip/femur pain following fall. Comparison: January 25, 2016. AP pelvis again demonstrates osteopenia, bilateral total hip arthroplasty with intact bipolar prosthesis, and lower lumbar degenerative changes. No new/acute findings.
--- NOTE | 2017-02-02 16:59 | XRAY ---
Indication: Pain following fall. Comparison: None 2 views of the left femur demonstrates osteopenia, moderate tricompartmental knee degenerative changes, and previous total hip arthroplasty with intact bipolar prosthesis. No other bony, articular, or soft tissue abnormalities.
[2017-02-02] MEDS: Advair Hfa 115/21 Common canister IH SCH (18:47)
--- NOTE | 2017-02-02 20:09 | PCM.HP ---
History of Present Illness - Chief Complaint Chief Complaint: WEAKNESS, FALLS FOR LAST FEW DAYS History of Present Illness: is a 76 year old female. patient lives alone in apartment with frequent C visits. She has frequent falls and is picked up off the floor frequently by EMS. She has a very wobbily gait. Today she fell backwards on the toilet and could not get up so she summoned EMS. She complains of left hip pain and neck pain. Disoriented to the year. No other complaints. She states she does not want to go to the [place]. Occurred: this morning Loss of Consciousness: no loss of consciousness - Review of Systems Constitutional: No Fever, No Chills Eyes: No Symptoms Ears, Nose, & Throat: No Symptoms Respiratory: No Cough, No Short Of Breath Cardiac: No Chest Pain, No Edema, No Syncope Abdominal/Gastrointestinal: No Abdominal Pain, No Nausea, No Vomiting, No Diarrhea Genitourinary Symptoms: Dysuria, Frequency Musculoskeletal: No Back Pain, No Neck Pain Skin: No Rash Neurological: No Dizziness, No Focal Weakness, No Sensory Changes Psychological: No Symptoms Endocrine: No Symptoms Hematologic/Lymphatic: No Symptoms Immunological/Allergic: No Symptoms Medications & Allergies Home Medications: Home Medication List Aspirin 81 gm Chew [Baby Aspirin 81 mg Chew] 81 mg PO DAILY 12/17/16 [ History Confirmed 02/02/17] Atenolol 50 mg [Tenormin 50 mg] 50 mg PO DAILY 12/17/16 [History Confirmed 02/02/17] Fluticasone/Vilanterol [Breo Ellipta 100-25 Mcg INH] 1 each IH DAILY 12/17/16 [ History Confirmed 02/02/17] Levothyroxine Sodium [Synthroid] 125 mcg PO DAILY 12/17/16 [History Confirmed ] Loratadine 10 mg [Claritin 10 mg] 10 mg PO DAILY 12/17/16 [History Confirmed 02/02/17] Lorazepam 1 mg [Ativan 1 MG] 0.5 mg PO BID PRN 12/17/16 [History Confirmed 02/02/17] Losartan Potassium 50 mg [Cozaar 50 MG] 50 mg PO DAILY 12/17/16 [History Confirmed 02/02/17] Meloxicam 7.5 mg [Mobic 7.5 MG] 7.5 mg PO BID 12/17/16 [History Confirmed 02/02/17] Metformin HCl Xr 500 mg [Glucophage XR 500 MG] 500 mg PO BID 12/17/16 [ History Confirmed 02/02/17] Nadolol [Corgard] 40 mg PO DAILY 12/17/16 [History Confirmed 02/02/17] Pantoprazole Sodium [Protonix] 40 mg PO DAILY 12/17/16 [History Confirmed ] Pravastatin Sodium [Pravachol] 20 mg PO HS 12/17/16 [History Confirmed 02/02/17] Prochlorperazine Maleate 5 mg* [Compazine 5 MG] 5 mg PO TID 12/17/16 [ History Confirmed 02/02/17] Ranitidine HCl [Zantac] 150 mg PO BID 12/17/16 [History Confirmed 02/02/17] Sertraline HCl [Zoloft] 100 mg PO DAILY 12/17/16 [History Confirmed 02/02/17] Amlodipine Besylate 5 mg [Norvasc 5 mg] 5 mg PO DAILY 02/02/17 [History Confirmed 02/02/17] Magnesium Oxide 250 mg PO BID 02/02/17 [History Confirmed 02/02/17] Nitroglycerin 0.4 mg Tablet [Nitrostat 0.4 MG Tablet] 0.4 mg SL Q5MIN PRN MR X 3 PRN 02/02/17 [History Confirmed 02/02/17] Topiramate [Topamax] 25 mg PO BID 02/02/17 [History Confirmed 02/02/17] Allergies/Adverse Reactions: Allergies Allergy/AdvReac Type Severity Reaction Status Date / Time morphine Allergy Verified 02/02/17 08:42 Penicillins Allergy Verified 02/02/17 08:42 sulfamethoxazole Allergy Verified 02/02/17 08:42 [From Bactrim] trimethoprim [From Bactrim] Allergy Verified 02/02/17 08:42 - Past Medical History Past Medical History: Yes Neurological History: No Pertinent History, TIA ENT History: Cataracts Cardiac History: Angina, High Cholesterol, Hypertension Respiratory History: Asthma, Bronchitis, CHF, Pneumonia Endocrine Medical History: Diabetes Type II, Hyperthyroidism Musculoskelatal History: Arthritis GI Medical History: GERD, Gallbladder Disease, Other History: No Pertinent History Pyscho-Social History: Anxiety, Depression Reproductive Disorders: No Pertinent History, Other Comment: Possible TIA after knee replacement. Chronic frequent diarrhea. yeast infection - Female History Are you now?: No - Past Surgical History Past Surgical History: Yes Neuro Surgical History: No Pertinent History Cardiac History: Cardiac Catheterization Respiratory Surgery: No Pertinent History GI Surgical History: Cholecystectomy Genitourinary Surgical Hx: No Pertinent History Musculskeletal Surgical Hx: Joint Replacement, Orthopedic Surgery Female Surgical History: No Pertinent History Other Surgical History: bilateral hip replacement, right knee replacemen, héctor cataracts - Social History Smoking Status: Former smoker Exposure to second hand smoke: Yes Alcohol: None Drug Use: none - Physical Exam Vital Signs: Vital Signs - 24 hr Temp Pulse Resp BP BP Pulse Ox 02/02/17 18:47 52 L 17 96 02/02/17 16:00 51 L 147/67 02/02/17 15:45 54 L 16 95 02/02/17 15:09 98.1 F 51 L 18 147/67 94 L 02/02/17 11:32 98.0 F 58 L 16 193/77 94 L 02/02/17 11:20 98.0 F 58 L 16 193/77 94 L 02/02/17 10:52 97.9 F 58 L 16 174/68 98 02/02/17 10:35 94 L 02/02/17 10:19 98.0 F 56 L 16 188/66 98 02/02/17 10:00 56 L 18 187/66 96 02/02/17 09:48 97.8 F 56 L 18 187/66 98 02/02/17 08:31 98.4 F 56 L 18 192/75 94 L General Appearance: no apparent distress, alert Neurologic Exam: alert, oriented x 3, cooperative, normal mood/affect, nml cerebellar function, nml station & gait, sensation nml, No motor deficits Eye Exam: PERRL/EOMI, eyes nml inspection Ears, Nose, Throat Exam: normal ENT inspection, TMs normal, pharynx normal, moist mucous membranes Neck Exam: normal inspection, non-tender, supple, full range of motion Respiratory Exam: normal breath sounds, lungs clear, No respiratory distress Cardiovascular Exam: regular rate/rhythm, normal heart sounds, normal peripheral pulses Gastrointestinal/Abdomen Exam: soft, normal bowel sounds, No tenderness, No mass Back Exam: normal inspection, normal range of motion, No CVA tenderness, No vertebral tenderness Extremity Exam: normal inspection, normal range of motion, pelvis stable Skin Exam: normal color, warm, dry, No rash Lymphatic Exam: No adenopathy Results - Labs Lab/Micro Results: Accuchecks Date 02/02/17 Date 02/02/17 Time 16:30 Time 16:30 Accucheck Value: 101 Accucheck Value: 101 Accuchecks Date 02/02/17 Date 02/02/17 Time 16:30 Time 16:30 Accucheck Value: 101 Accucheck Value: 101 - Other Procedures and Tests Respiratory Therapy 02/02/17 15:45 Oxygen NASAL CANNULA 2 lpm 02/02/17 19:00 Respiratory MDI BID Assessment/Plan (1) UTI (urinary tract infection) Current Visit: Yes Status: Acute Qualifiers: Urinary tract infection type: acute cystitis Hematuria presence: without hematuria Qualified Code(s): N30.00 - Acute cystitis without hematuria Code(s): N39.0 - URINARY TRACT INFECTION, SITE NOT SPECIFIED (2) Contusion of left hip Current Visit: Yes Status: Acute Qualifiers: Encounter type: initial encounter Qualified Code(s): S70.02XA - Contusion of left hip, initial encounter Code(s): S70.02XA - CONTUSION OF LEFT HIP, INITIAL ENCOUNTER (3) Frequent falls Current Visit: Yes Status: Acute Code(s): R29.6 - REPEATED FALLS
[2017-02-02] MEDS: MAG-OX 400 PO SCH (21:13)
[2017-02-02] MEDS: Topamax 25 MG PO SCH (21:13)
[2017-02-02] MEDS: ZOCOR 20MG PO SCH (21:13)
[2017-02-02] MEDS: Pepcid 20 MG PO SCH (21:14)
[2017-02-02] MEDS: Glucophage XR 500 MG PO SCH (21:14)
[2017-02-02] MEDS: Mobic 7.5 MG PO SCH (21:14)
[2017-02-02] MEDS ORDERED: NON-FORMULARY ITEM (Ranitidine Hcl [Zantac] 150 MG) PO SCH (22:00)
[2017-02-02] MEDS ORDERED: MAGNESIUM OXIDE 250 MG PO SCH (22:00)
[2017-02-02] MEDS ORDERED: NON-FORMULARY ITEM (Pravastatin Sodium [Pravachol] 20 MG) PO SCH (22:00)
[2017-02-02] MEDS ORDERED: TOPIRAMATE 25 MG PO SCH (22:00)
[2017-02-03] MEDS ORDERED: Cozaar 50 MG PO ONE (05:00)
[2017-02-03] MEDS: Advair Hfa 115/21 Common canister IH SCH ×2 (07:18→19:43)
[2017-02-03] MEDS: MAG-OX 400 PO SCH ×2 (08:08→21:41)
[2017-02-03] MEDS: NORVASC 5 MG PO SCH (08:08)
[2017-02-03] MEDS: Protonix 40MG Tablet PO SCH (08:08)
[2017-02-03] MEDS: Glucophage XR 500 MG PO SCH ×2 (08:08→21:41)
[2017-02-03] MEDS: Cozaar 50 MG PO SCH (08:08)
[2017-02-03] MEDS: Compazine 5 MG PO SCH ×3 (08:08→21:41)
[2017-02-03] MEDS: SYNTHROID 125 MCG PO SCH (08:08)
[2017-02-03] MEDS: Mobic 7.5 MG PO SCH ×2 (08:08→21:42)
[2017-02-03] MEDS: Pepcid 20 MG PO SCH ×2 (08:08→21:41)
[2017-02-03] MEDS: ECOTRIN 81 MG PO SCH (08:08)
[2017-02-03] MEDS: CLARITIN 10 MG PO SCH (08:09)
[2017-02-03] MEDS: ZOLOFT 50 MG TABLET PO SCH (08:09)
[2017-02-03] MEDS: TENORMIN 50 MG PO SCH (08:10)
[2017-02-03] MEDS: Topamax 25 MG PO SCH ×2 (08:11→21:42)
[2017-02-03] MEDS: NON-FORMULARY ITEM PO SCH (08:11)
[2017-02-03] MEDS: ROCEPHIN 1 Gm-D5w 50 ml Bag** 1 G/50 ML IVPB IV SCH (09:54)
[2017-02-03] MEDS ORDERED: NON-FORMULARY ITEM (Sertraline Hcl [Zoloft] 100 MG) PO SCH (10:00)
[2017-02-03] MEDS ORDERED: NON-FORMULARY ITEM (Fluticasone/Vilanterol [Breo Ellipta 100-25 Mcg Inh] 1 EACH) IH SCH (10:00)
[2017-02-03] MEDS ORDERED: NADOLOL 40 MG PO SCH (10:00)
[2017-02-03] MEDS ORDERED: BABY ASPIRIN 81 MG CHEW PO SCH (10:00)
--- NOTE | 2017-02-03 18:05 | PCM.NOTE ---
Date and Time: 02/03/171803 Subjective Assessment: doing better - Review of Systems Constitutional: No Fever, No Chills Eyes: No Symptoms Ears, Nose, & Throat: No Symptoms Respiratory: No Cough, No Short Of Breath Cardiac: No Chest Pain, No Edema, No Syncope Abdominal/Gastrointestinal: No Abdominal Pain, No Nausea, No Vomiting, No Diarrhea Genitourinary Symptoms: No Dysuria Musculoskeletal: No Back Pain, No Neck Pain Skin: No Rash Neurological: No Dizziness, No Focal Weakness, No Sensory Changes Psychological: No Symptoms Endocrine: No Symptoms Hematologic/Lymphatic: No Symptoms Immunological/Allergic: No Symptoms Objective Exam General Appearance: no apparent distress, alert Neurologic Exam: alert, oriented x 3, cooperative, normal mood/affect, nml cerebellar function, sensation nml, No motor deficits Skin Exam: normal color, warm, dry Eye Exam: PERRL, EOMI, eyes nml inspection Ears, Nose, Throat Exam: normal ENT inspection, pharynx normal, moist mucous membranes Neck Exam: normal inspection, non-tender, supple, full range of motion Respiratory Exam: normal breath sounds, lungs clear, No respiratory distress Cardiovascular Exam: regular rate/rhythm, normal heart sounds Gastrointestinal/Abdomen Exam: soft, No tenderness, No mass Extremity Exam: normal inspection, normal range of motion Back Exam: normal inspection, normal range of motion, No CVA tenderness, No vertebral tenderness Pelvic Exam: deferred Rectal Exam: deferred OBJECTIVE DATA Vital Signs: Vital Signs - 24 hr Temp Pulse Resp BP BP Pulse Ox 02/03/17 16:00 98 F 49 L 14 158/68 93 L 02/03/17 11:25 98.3 F 48 L 18 184/74 96 02/03/17 08:10 54 L 177/79 02/03/17 07:20 48 L 16 98 02/03/17 06:15 185/79 02/03/17 04:45 98.5 F 49 L 16 210/74 92 L 02/03/17 01:11 176/65 02/03/17 00:00 98.6 F 48 L 16 187/79 98 02/02/17 19:00 97.8 F 53 L 18 154/83 94 L 02/02/17 18:47 52 L 17 96 Oxygen-Last 24 hours O2 Percentage 2 Liters = 28% O2 Percentage 2 Liters = 28% Intake and Output: Intake & Output 02/01/17 02/02/17 02/03/17 02/04/17 11:59 11:59 11:59 11:59 Intake Total 960 Output Total 500 Balance 460 Lab Results: Accuchecks Date 02/03/17 Date 02/03/17 Time 16:17 Time 11:30 Multi-Disciplinary Progress Notes: Multi-Disciplinary Progress Notes 02/03/17 13:01 Case Management Note by Hollei Navas CALLED MADELY[place] DR. MARTINEZ REQUEST TO SEE IF PT HAD ANY DAYS LEFT FOR REHAB ON HER DISCHARGE. BINA, PIN TICKET MACHINE OPERATOR FROM [facility] CALLED BACK AND STATES THAT THIS PT HAS NOT BEEN THERE FOR SOME TIME, AND SO WOULD START OVER WITH HER 100 DAYS, WITH [facility] PAPERS AND LOC IF NEEDED. AT THIS TIME PT HAS BEEN LIVING AT HOME BY SELF. WILL NOTIFY DR. MARTINEZ ON HIS RETURN AND AWAIT DECISION ON ANY PLACEMENT. WILL CONTINUE TO MONITOR FOR ALL D/C NEEDS. Initialized on 02/03/17 13:01 - END OF NOTE Assessment/Plan (1) UTI (urinary tract infection) Current Visit: Yes Status: Acute Qualifiers: Urinary tract infection type: acute cystitis Hematuria presence: without hematuria Qualified Code(s): N30.00 - Acute cystitis without hematuria Code(s): N39.0 - URINARY TRACT INFECTION, SITE NOT SPECIFIED (2) Contusion of left hip Current Visit: Yes Status: Acute Qualifiers: Encounter type: subsequent encounter Qualified Code(s): S70.02XD - Contusion of left hip, subsequent encounter Code(s): S70.02XA - CONTUSION OF LEFT HIP, INITIAL ENCOUNTER (3) Frequent falls Current Visit: Yes Status: Resolved Code(s): R29.6 - REPEATED FALLS
[2017-02-03] MEDS: ZOCOR 20MG PO SCH (21:42)
[2017-02-04] MEDS: Advair Hfa 115/21 Common canister IH SCH ×2 (07:12→17:28)
--- NOTE | 2017-02-04 09:04 | PCM.NOTE ---
Date and Time: 02/04/17903 Subjective Assessment: doing better - Review of Systems Constitutional: No Fever, No Chills Eyes: No Symptoms Ears, Nose, & Throat: No Symptoms Respiratory: No Cough, No Short Of Breath Cardiac: No Chest Pain, No Edema, No Syncope Abdominal/Gastrointestinal: No Abdominal Pain, No Nausea, No Vomiting, No Diarrhea Genitourinary Symptoms: No Dysuria Musculoskeletal: No Back Pain, No Neck Pain Skin: No Rash Neurological: No Dizziness, No Focal Weakness, No Sensory Changes Psychological: No Symptoms Endocrine: No Symptoms Hematologic/Lymphatic: No Symptoms Immunological/Allergic: No Symptoms Objective Exam General Appearance: no apparent distress, alert Neurologic Exam: alert, oriented x 3, cooperative, normal mood/affect, nml cerebellar function, sensation nml, No motor deficits Skin Exam: normal color, warm, dry Eye Exam: PERRL, EOMI, eyes nml inspection Ears, Nose, Throat Exam: normal ENT inspection, pharynx normal, moist mucous membranes Neck Exam: normal inspection, non-tender, supple, full range of motion Respiratory Exam: normal breath sounds, lungs clear, No respiratory distress Cardiovascular Exam: regular rate/rhythm, normal heart sounds Gastrointestinal/Abdomen Exam: soft, No tenderness, No mass Extremity Exam: normal inspection, normal range of motion Back Exam: normal inspection, normal range of motion, No CVA tenderness, No vertebral tenderness Pelvic Exam: deferred Rectal Exam: deferred OBJECTIVE DATA Vital Signs: Vital Signs - 24 hr Temp Pulse Resp BP Pulse Ox 02/04/17 07:25 97.9 F 49 L 18 178/78 98 02/04/17 07:16 49 L 16 98 02/04/17 04:00 98.0 F 54 L 18 165/62 95 02/04/17 00:00 98.3 F 46 L 18 142/60 97 02/03/17 20:00 98.2 F 54 L 20 166/84 94 L 02/03/17 19:43 49 L 16 95 02/03/17 16:00 98 F 49 L 14 158/68 93 L 02/03/17 11:25 98.3 F 48 L 18 184/74 96 Oxygen-Last 24 hours O2 Percentage 2 Liters = 28% O2 Percentage 2 Liters = 28% O2 Percentage 2 Liters = 28% Intake and Output: Intake & Output 07/28/17 02/02/17 02/03/17 02/04/17 11:59 11:59 11:59 11:59 Intake Total 1440 Output Total 500 Balance 940 Lab Results: Accuchecks Date 02/04/17 Date 02/03/17 Date 02/03/17 Date 02/03/17 Time 07:30 Time 16:17 Time 11:30 Accucheck Value: 90 Accucheck Value: 105 Multi-Disciplinary Progress Notes: Multi-Disciplinary Progress Notes 02/03/17 13:01 Case Management Note by Hollie Navas CALLED [facility] DR. MARTINEZ REQUEST TO SEE IF PT HAD ANY DAYS LEFT FOR REHAB ON HER DISCHARGE. BINA, ROUTE CONTRACTOR FROM [place] CALLED BACK AND STATES THAT THIS PT HAS NOT BEEN THERE FOR SOME TIME, AND SO WOULD START OVER WITH HER 100 DAYS, WITH [facility] PAPERS AND LOC IF NEEDED. AT THIS TIME PT HAS BEEN LIVING AT HOME BY SELF. WILL NOTIFY DR. MARTINEZ ON HIS RETURN AND AWAIT DECISION ON ANY PLACEMENT. WILL CONTINUE TO MONITOR FOR ALL D/C NEEDS. Initialized on 02/03/17 13:01 - END OF NOTE Assessment/Plan (1) UTI (urinary tract infection) Current Visit: Yes Status: Acute Qualifiers: Urinary tract infection type: acute cystitis Hematuria presence: without hematuria Qualified Code(s): N30.00 - Acute cystitis without hematuria Code(s): N39.0 - URINARY TRACT INFECTION, SITE NOT SPECIFIED (2) Contusion of left hip Current Visit: Yes Status: Acute Qualifiers: Encounter type: subsequent encounter Qualified Code(s): S70.02XD - Contusion of left hip, subsequent encounter Code(s): S70.02XA - CONTUSION OF LEFT HIP, INITIAL ENCOUNTER (3) Frequent falls Current Visit: Yes Status: Resolved Code(s): R29.6 - REPEATED FALLS
[2017-02-04] MEDS: CLARITIN 10 MG PO SCH (09:27)
[2017-02-04] MEDS: TENORMIN 50 MG PO SCH (09:28)
[2017-02-04] MEDS: MAG-OX 400 PO SCH ×2 (09:28→23:46)
[2017-02-04] MEDS: Compazine 5 MG PO SCH ×3 (09:28→23:45)
[2017-02-04] MEDS: ECOTRIN 81 MG PO SCH (09:28)
[2017-02-04] MEDS: Pepcid 20 MG PO SCH ×2 (09:28→23:45)
[2017-02-04] MEDS: Mobic 7.5 MG PO SCH ×2 (09:28→23:48)
[2017-02-04] MEDS: Cozaar 50 MG PO SCH (09:28)
[2017-02-04] MEDS: SYNTHROID 125 MCG PO SCH (09:28)
[2017-02-04] MEDS: NORVASC 5 MG PO SCH (09:28)
[2017-02-04] MEDS: ZOLOFT 50 MG TABLET PO SCH (09:28)
[2017-02-04] MEDS: Protonix 40MG Tablet PO SCH (09:29)
[2017-02-04] MEDS: Topamax 25 MG PO SCH ×2 (09:29→23:45)
[2017-02-04] MEDS: Glucophage XR 500 MG PO SCH ×2 (09:29→23:45)
[2017-02-04] MEDS: ROCEPHIN 1 Gm-D5w 50 ml Bag** 1 G/50 ML IVPB IV SCH (09:29)
[2017-02-04] MEDS: NON-FORMULARY ITEM PO SCH (09:30)
[2017-02-04] MEDS ORDERED: Cozaar 50 MG ONE (19:55)
[2017-02-04] MEDS: ZOCOR 20MG PO SCH (23:45)
[2017-02-04] MEDS: Ativan 1 MG PO PRN (23:46)
[2017-02-05] MEDS: Advair Hfa 115/21 Common canister IH SCH (05:41)
[2017-02-05] MEDS: ROCEPHIN 1 Gm-D5w 50 ml Bag** 1 G/50 ML IVPB IV SCH (09:25)
[2017-02-05] MEDS: NORVASC 5 MG PO SCH (09:26)
[2017-02-05] MEDS: Protonix 40MG Tablet PO SCH (09:26)
[2017-02-05] MEDS: Cozaar 50 MG PO SCH (09:26)
[2017-02-05] MEDS: ECOTRIN 81 MG PO SCH (09:26)
[2017-02-05] MEDS: Pepcid 20 MG PO SCH (09:26)
[2017-02-05] MEDS: Compazine 5 MG PO SCH (09:26)
[2017-02-05] MEDS: Mobic 7.5 MG PO SCH (09:26)
[2017-02-05] MEDS: Glucophage XR 500 MG PO SCH (09:26)
[2017-02-05] MEDS: CLARITIN 10 MG PO SCH (09:26)
[2017-02-05] MEDS: SYNTHROID 125 MCG PO SCH (09:26)
[2017-02-05] MEDS: MAG-OX 400 PO SCH (09:26)
[2017-02-05] MEDS: Topamax 25 MG PO SCH (09:28)
[2017-02-05] MEDS: Ativan 1 MG PO PRN (09:34)
[2017-02-05] MEDS: ZOLOFT 50 MG TABLET PO SCH (09:35)
[2017-02-05] MEDS: NON-FORMULARY ITEM PO SCH (10:16)
[2017-02-05] MEDS: TENORMIN 50 MG PO SCH (10:17)
[2017-02-05 13:15] VITALS: BP 145/61; PULSE 45; O2SAT 97
[2017-02-05] MEDS ORDERED: Cozaar 50 MG PO ONE (20:00)
--- NOTE | 2017-02-05 21:15 | PCM.DS ---
Discharge Summary Date of Admission: 02/03/17 11:15 Admitting Physician: ITZEL MARTINEZ Primary Care Provider: ITZEL MARTINEZ Allergies Allergies morphine Allergy (Verified 02/02/17 08:42) Penicillins Allergy (Verified 02/02/17 08:42) sulfamethoxazole [From Bactrim] Allergy (Verified 02/02/17 08:42) trimethoprim [From Bactrim] Allergy (Verified 02/02/17 08:42) Hospital Summary - Hospital Course Hospital Course: Chief Complaint Diagnosis UTI, CONFUSION, FAILED OUTPATIENT Allergies Allergy/AdvReac Type Severity Reaction Status Date / Time morphine Allergy Verified 02/02/17 08:42 Penicillins Allergy Verified 02/02/17 08:42 sulfamethoxazole Allergy Verified 02/02/17 08:42 [From Bactrim] trimethoprim [From Bactrim] Allergy Verified 02/02/17 08:42 Vital Signs (Last 24 hours) Temp Pulse Resp BP Pulse Ox 02/05/17 13:00 97.8 F 45 L 20 145/61 97 02/05/17 10:17 51 L 02/05/17 07:37 98.2 F 57 L 20 158/62 96 02/05/17 05:41 47 L 17 99 02/05/17 05:00 98.7 F 44 L 17 183/75 98 02/05/17 01:00 98.1 F 45 L 17 156/62 96 02/04/17 21:25 47 L 164/84 Home Medications Medication Instructions Recorded Confirmed Last Taken Type Amlodipine Besylate 5 mg 5 mg PO DAILY 02/02/17 02/02/17 02/01/17 History [Norvasc 5 mg] Magnesium Oxide 250 mg PO BID 02/02/17 02/02/17 02/01/17 History Nitroglycerin 0.4 mg Tablet 0.4 mg SL Q5MIN PRN MR X 3 PRN 02/02/17 02/02/17 Unknown History [Nitrostat 0.4 MG Tablet] Topiramate [Topamax] 25 mg PO BID 02/02/17 02/02/17 02/01/17 History Cephalexin Mh 500 mg [Keflex 500 500 mg PO TID #21 capsule 02/05/17 Unknown Rx mg] Current Medications Discontinued Medications Generic Name Dose Route Start Last Admin Trade Name Graeme PRN Reason Stop Dose Admin Acetaminophen 650 mg 02/02/17 10:19 02/02/17 10:23 Tylenol 325 Mg PO 02/02/17 10:20 650 mg STAT ONE Administration Acetaminophen Confirm 02/02/17 10:22 Tylenol 325 Mg Administered 02/02/17 10:23 Dose 650 mg .ROUTE .STK-MED ONE Acetaminophen 650 mg 02/02/17 11:09 Tylenol 325 Mg PO 03/04/17 11:08 Q4H PRN PRN PAIN AND/OR FEVER Amlodipine Besylate 5 mg 02/02/17 16:00 02/05/17 09:26 Norvasc 5 Mg PO 03/04/17 15:59 5 mg DAILY MARKUS Administration Aspirin 81 mg 02/02/17 16:00 02/05/17 09:26 Ecotrin 81 Mg PO 03/04/17 15:59 81 mg DAILY MARKUS Administration Atenolol 50 mg 02/02/17 16:00 02/05/17 10:17 Tenormin 50 Mg PO 03/04/17 15:59 Not Given DAILY MARKUS Famotidine 20 mg 02/02/17 22:00 02/05/17 09:26 Pepcid 20 Mg PO 03/04/17 21:59 20 mg BID MARKUS Administration Ceftriaxone Sodium/Dextrose 1 g in 50 mls @ 100 mls/hr 02/02/17 10:35 10:42 Rocephin 1 Gm-D5w 50 Ml Bag IV 02/02/17 11:04 100 mls/hr STAT STA Administration Ceftriaxone Sodium/Dextrose Confirm 02/02/17 10:41 Rocephin 1 Gm-D5w 50 Ml Bag Administered 02/02/17 10:42 Dose 1 g in 50 mls @ ud IV .STK-MED ONE Ceftriaxone Sodium/Dextrose 1 g in 50 mls @ 100 mls/hr 02/03/17 10:00 09:25 Rocephin 1 Gm-D5w 50 Ml Bag IV 03/05/17 09:59 100 mls/hr Q24H10 MARKUS Administration Insulin Aspart 0 unit 02/02/17 11:09 Novolog Insulin SQ 03/04/17 11:08 UD PRN HYPERGLYCEMIA Levothyroxine Sodium 125 mcg 02/02/17 16:00 02/05/17 09:26 Synthroid 125 Mcg PO 03/04/17 15:59 125 mcg DAILY MARKUS Administration Loratadine 10 mg 02/02/17 16:00 02/05/17 09:26 Claritin 10 Mg PO 03/04/17 15:59 10 mg DAILY MARKUS Administration Lorazepam 0.5 mg 02/02/17 15:18 02/05/17 09:34 Ativan 1 Mg PO 03/04/17 15:17 0.5 mg BID PRN PRN Administration ANXIETY Losartan Potassium 50 mg 02/02/17 16:00 02/05/17 09:26 Cozaar 50 Mg PO 03/04/17 15:59 50 mg DAILY MARKUS Administration Losartan Potassium 50 mg 02/03/17 05:00 02/03/17 05:00 Cozaar 50 Mg PO 02/03/17 05:01 50 mg ONCE ONE Administration Losartan Potassium 50 mg 02/05/17 20:00 02/04/17 19:59 Cozaar 50 Mg PO 02/05/17 20:01 50 mg ONCE ONE Administration Losartan Potassium Confirm 02/04/17 19:55 Cozaar 50 Mg Administered 02/04/17 19:56 Dose 50 mg .ROUTE .STK-MED ONE Magnesium Oxide 200 mg 02/02/17 22:00 02/05/17 09:26 Mag-Ox 400 PO 03/04/17 21:59 200 mg BID MARKUS Administration Meloxicam 7.5 mg 02/02/17 22:00 02/05/17 09:26 Mobic 7.5 Mg PO 03/04/17 21:59 7.5 mg BID MARKUS Administration Metformin HCl 500 mg 02/02/17 22:00 02/05/17 09:26 Glucophage Xr 500 Mg PO 03/04/17 21:59 500 mg BID MARKUS Administration Nitroglycerin 0.4 mg 02/02/17 15:18 Nitrostat 0.4 Mg Tablet SL 03/04/17 15:17 Q5MIN PRN MR X 3 PRN CHEST PAIN Nadolol 40mg Tablet 1 each 02/02/17 16:00 08/01/17 10:16 PO 03/04/17 15:59 Not Given DAILY MARKUS Pantoprazole Sodium 40 mg 02/02/17 16:00 02/05/17 09:26 Protonix 40mg Tablet PO 03/04/17 15:59 40 mg DAILY MARKUS Administration Prochlorperazine 5 mg 02/02/17 16:00 02/05/17 09:26 Compazine 5 Mg PO 03/04/17 15:59 5 mg TID MARKUS Administration Fluticasone/Salmeterol 2 puff 02/02/17 19:00 02/05/17 05:41 Advair Hfa 115/21 Common Canister* IH 03/04/17 18:59 2 puff BIDRT MARKUS Administration Sertraline HCl 100 mg 02/02/17 16:00 02/05/17 09:35 Zoloft 50 Mg Tablet PO 03/04/17 15:59 100 mg DAILY MARKUS Administration Simvastatin 20 mg 02/02/17 22:00 02/04/17 23:45 Zocor 20mg PO 03/04/17 21:59 20 mg HS MARKUS Administration Topiramate 25 mg 02/02/17 22:00 02/05/17 09:28 Topamax 25 Mg PO 03/04/17 21:59 25 mg BID MARKUS Administration Intake & Output (Last 24 hours) 02/03/17 02/04/17 02/05/17 02/06/17 11:59 11:59 11:59 11:59 Intake Total 1500 1860 1060 Output Total 700 500 200 Balance 800 1360 860 Orders (Last 24 hours) Category Date Time Status Discharge Routine Discharge 02/05/17 12:00 Ordered Losartan Potassium 50 mg [Cozaar 50 MG] Med 02/05/17 20:00 Discontinued 50 mg PO ONCE ONE Patient Care Notes (Last 24 hours) 02/05/17 13:38 Nursing Note by Emma Bradley HAVE ATTEMPTED TO CALL [facility] [place] SEVERAL TIMES TO GIVE REPORT NO ANSWER. Initialized on 02/05/17 13:38 - END OF NOTE 02/05/17 11:05 Case Management Note by Hollie Navas S/Jimmy DENT WITH PT HOME [facility], [place] TO LET THEM KNOW THAT SHE WAS GOING TO BE DISCHARGED TO MAX. Initialized on 02/05/17 11:05 - END OF NOTE - Vitals & Intake/Output Vital Signs: Vital Signs Temperature 97.8 F 02/05/17 13:00 Pulse Rate 45 L 02/05/17 13:00 Respiratory Rate 20 02/05/17 13:00 Blood Pressure 145/61 02/05/17 13:00 O2 Sat by Pulse Oximetry 97 02/05/17 13:00 Oxygen-Last Documented O2 Percentage 3 Liters = 32% Intake & Output: Intake & Output 02/03/17 02/04/17 02/05/17 02/06/17 11:59 11:59 11:59 11:59 Intake Total 1860 1060 Output Total 500 200 Balance 1360 860 - Lab Result Diagrams: 02/02/17 09:00 02/02/17 09:00 Lab Results-Last 24 Hrs: Accuchecks Date 02/05/17 Date 02/05/17 Date 02/05/17 Date 02/04/17 Time 11:32 Time 07:30 Time 07:47 Time 21:30 Accucheck Value: 83 Accucheck Value: 94 Accucheck Value: 94 Accucheck Value: 92 Micro Results-Entire Visit: Accuchecks Date 02/05/1702/05/17 Date 02/05/17 Date 02/04/17 Time 11:32 Time 07:30 Time 07:47 Time 21:30 Accucheck Value: 83 Accucheck Value: 94 Accucheck Value: 94 Accucheck Value: 92 Discharge Exam General Appearance: no apparent distress, alert Neurologic Exam: alert, oriented x 3, cooperative, normal mood/affect, nml cerebellar function, sensation nml, No motor deficits Skin Exam: normal color, warm, dry Eye Exam: PERRL, EOMI, eyes nml inspection Ears, Nose, Throat Exam: normal ENT inspection, pharynx normal, moist mucous membranes Neck Exam: normal inspection, non-tender, supple, full range of motion Respiratory Exam: normal breath sounds, lungs clear, No respiratory distress Cardiovascular Exam: regular rate/rhythm, normal heart sounds Gastrointestinal/Abdomen Exam: soft, No tenderness, No mass Extremity Exam: normal inspection, normal range of motion Back Exam: normal inspection, normal range of motion, No CVA tenderness, No vertebral tenderness Pelvic Exam: deferred Rectal Exam: deferred Final Diagnosis/Problem List - Final Discharge Diagnosis/Problem (1) UTI (urinary tract infection) Status: Acute (2) Contusion of left hip Status: Acute (3) Frequent falls Status: Resolved - Discharge Discharge Date: 02/05/17 Disposition: Skilled Care @ [facility] Condition: Stable Prescriptions: New Cephalexin Mh 500 mg [Keflex 500 mg] 500 mg PO TID #21 capsule Continue Ranitidine HCl [Zantac] 150 mg PO BID Pravastatin Sodium [Pravachol] 20 mg PO HS Fluticasone/Vilanterol [Breo Ellipta 100-25 Mcg INH] 1 each IH DAILY Levothyroxine Sodium [Synthroid] 125 mcg PO DAILY Sertraline HCl [Zoloft] 100 mg PO DAILY Prochlorperazine Maleate 5 mg* [Compazine 5 MG] 5 mg PO TID Meloxicam 7.5 mg [Mobic 7.5 MG] 7.5 mg PO BID Atenolol 50 mg [Tenormin 50 mg] 50 mg PO DAILY Nadolol [Corgard] 40 mg PO DAILY Lorazepam 1 mg [Ativan 1 MG] 0.5 mg PO BID PRN PRN Reason: Anxiety Losartan Potassium 50 mg [Cozaar 50 MG] 50 mg PO DAILY Aspirin 81 gm Chew [Baby Aspirin 81 mg Chew] 81 mg PO DAILY Pantoprazole Sodium [Protonix] 40 mg PO DAILY Loratadine 10 mg [Claritin 10 mg] 10 mg PO DAILY Metformin HCl Xr 500 mg [Glucophage XR 500 MG] 500 mg PO BID Topiramate [Topamax] 25 mg PO BID Amlodipine Besylate 5 mg [Norvasc 5 mg] 5 mg PO DAILY Nitroglycerin 0.4 mg Tablet [Nitrostat 0.4 MG Tablet] 0.4 mg SL Q5MIN PRN MR X 3 PRN PRN Reason: Chest Pain Magnesium Oxide 250 mg PO BID Instructions: Urinary Tract Infection (UTI) Follow up with: ITZEL MARTINEZ MD [Primary Care Provider] -
== END 2017-02-05 14:00 | DRG 690 ==
LOC: ED 08:30 → MED SURG 11:05 → OBSVTOIN 02-03 11:15
PROVIDERS: ADMIT General Practice; ATTEND General Practice
DX: N39.0 Urinary tract infection, site not specified (principal); S70.02XA Contusion of left hip, initial encounter; R29.6 Repeated falls; E11.9 Type 2 diabetes mellitus without complications; Z79.4 Long term (current) use of insulin; Z86.73 Personal history of transient ischemic attack (TIA), and cerebral infarction without residual deficits; E05.90 Thyrotoxicosis, unspecified without thyrotoxic crisis or storm; K21.9 Gastro-esophageal reflux disease without esophagitis; F41.9 Anxiety disorder, unspecified
CPT/HCPCS: 36415; 70450; 71010; 72125; 72170; 73552; 80053; 81000; 82962; 83036; 85025; 87077; 87086; 87186; 94640; 94760; 96365; 99285; G0378; J0696; P9612; A9270-GY

== ENCOUNTER 2017-04-09 07:23 | Emergency (ER) | payer MEDICARE ==
--- NOTE | 2017-04-09 07:48 | ERPHSYRPT ---
- History of Present Illness Time Seen by Provider: 04/09/17 07:43 Source: EMS, half-way records Exam Limitations: clinical condition Physician History: The patient is a 76-year-old female brought in by ambulance from a local [facility] for 3 days of increasing altered consciousness and shortness of breath. The patient is awake but does not answer questions easily. There is no report of fever. Her past medical history is significant for CHF, hypertension, diabetes, high cholesterol, and hypothyroidism. Timing/Duration: day(s) (3) Activities at Onset: none Severity of Dyspnea-Max: moderate Severity of Dyspnea-Current: moderate Possible Cause: occasional episodes Modifying Factors: Improves With: oxygen Associated Symptoms: edema Allergies/Adverse Reactions: morphine Allergy (Verified 04/09/17 07:48) Penicillins Allergy (Verified 04/09/17 07:48) sulfamethoxazole [From Bactrim] Allergy (Verified 04/09/17 07:48) trimethoprim [From Bactrim] Allergy (Verified 04/09/17 07:48) Home Medications: Aspirin 81 gm Chew [Baby Aspirin 81 mg Chew] 81 mg PO DAILY 12/17/16 [ History] Levothyroxine Sodium [Synthroid] 150 mcg PO DAILY 12/17/16 [History] Loratadine 10 mg [Claritin 10 mg] 10 mg PO DAILY 12/17/16 [History] Lorazepam 1 mg [Ativan 1 MG] 0.5 mg PO BID PRN 12/17/16 [History] Losartan Potassium 50 mg [Cozaar 50 MG] 50 mg PO DAILY 12/17/16 [History] Metformin HCl Xr 500 mg [Glucophage XR 500 MG] 500 mg PO BID 12/17/16 [ History] Pantoprazole Sodium [Protonix] 40 mg PO DAILY 12/17/16 [History] Pravastatin Sodium [Pravachol] 20 mg PO HS 12/17/16 [History] Ranitidine HCl [Zantac] 150 mg PO BID 12/17/16 [History] Sertraline HCl [Zoloft] 100 mg PO DAILY 12/17/16 [History] Amlodipine Besylate 5 mg [Norvasc 5 mg] 5 mg PO DAILY 02/02/17 [History] Nitroglycerin 0.4 mg Tablet [Nitrostat 0.4 MG Tablet] 0.4 mg SL Q5MIN PRN MR X 3 PRN 02/02/17 [History] Magnesium Oxide 400 mg [Mag-Ox 400] 400 mg PO DAILY 04/09/17 [History] Metoprolol Succinate [Toprol Xl] 25 mg PO DAILY 04/09/17 [History] Pantoprazole Sodium [Protonix] 40 mg PO DAILY 04/09/17 [History] Topiramate 25 mg [Topamax 25 MG] 25 mg PO BID 04/09/17 [History] Hx Tetanus, Diphtheria Vaccination/Date Given: Yes Hx Influenza Vaccination/Date Given: Yes Hx Pneumococcal Vaccination/Date Given: Yes - Review of Systems Constitutional: No Fever, No Chills Eyes: No Symptoms Ears, Nose, & Throat: No Symptoms Respiratory: Dyspnea, No Cough Cardiac: Edema Abdominal/Gastrointestinal: No Abdominal Pain, No Nausea, No Vomiting, No Diarrhea Genitourinary Symptoms: No Dysuria Musculoskeletal: No Back Pain, No Neck Pain Skin: No Rash Neurological: Lethargy, No Dizziness, No Focal Weakness, No Sensory Changes Psychological: No Symptoms Endocrine: No Symptoms Hematologic/Lymphatic: No Symptoms Immunological/Allergic: No Symptoms All Other Systems: Reviewed and Negative - Past Medical History Pertinent Past Medical History: Yes Neurological History: No Pertinent History, TIA ENT History: Cataracts Cardiac History: Angina, High Cholesterol, Hypertension Respiratory History: Asthma, Bronchitis, CHF, Pneumonia Endocrine Medical History: Diabetes Type II, Hyperthyroidism Musculoskeletal History: Arthritis GI Medical History: GERD, Gallbladder Disease, Other History: No Pertinent History Psycho-Social History: Anxiety, Depression Female Reproductive Disorders: No Pertinent History, Other Other Medical History: Possible TIA after knee replacement. Chronic frequent diarrhea. yeast infection - Past Surgical History Past Surgical History: Yes Neuro Surgical History: No Pertinent History Cardiac: Cardiac Catheterization Respiratory: No Pertinent History Gastrointestinal: Cholecystectomy Genitourinary: No Pertinent History Musculoskeletal: Joint Replacement, Orthopedic Surgery Female Surgical History: No Pertinent History Other Surgical History: bilateral hip replacement, right knee replacemen, héctor cataracts - Social History Smoking Status: Former smoker Exposure to second hand smoke: Yes Drug Use: none Patient Lives Alone: Yes (lives alone in an apartment) - Female History Hx Now: No - Nursing Vital Signs Nursing Vital Signs: Initial Vital Signs Temperature 97.9 F 04/09/17 07:25 Pulse Rate 58 L 04/09/17 07:25 Respiratory Rate 30 H 04/09/17 07:25 Blood Pressure 192/67 04/09/17 07:25 O2 Sat by Pulse Oximetry 78 L 04/09/17 07:25 Pain Scale Pain Intensity 0 - Physical Exam General Appearance: moderate distress Eye Exam: PERRL/EOMI Ears, Nose, Throat Exam: hearing grossly normal Neck Exam: normal inspection, supple Respiratory Exam: normal breath sounds, lungs clear Cardiovascular/Chest Exam: normal heart sounds, regular rate/rhythm Abdominal/Gastrointestinal Exam: soft, No tenderness, No distention, No mass Rectal Exam: not done Extremity Exam: pedal edema (left leg) Neurologic Exam: alert, oriented x 3, cooperative, 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 Comp EKG 12/17/16) - CT Exams Chest CT Interpretation: Tele-radiologist Report, Pneumonia (bilateral upper lobe patchy airspace disease. No PE. Bilateral effusions, right greater than left. per Dr Riddle) Ordered Tests: Active Orders 24 hr Category Date Time Status Thread Singer STAT Care 04/09/17 07:52 Active Catheter-Onia Skinner STAT Care 04/09/17 07:51 Active EKG-ER Only STAT Care 04/09/17 07:51 Active IV Insertion STAT Care 04/09/17 07:51 Active Pulse Oximetry (ED) STAT Care 04/09/17 07:51 Active CHEST 1 VIEW (PORTABLE) Stat Exams 04/09/17 07:52 Completed CHEST WITH CONTRAST [CT] Stat Exams 04/09/17 08:59 Completed ABG [ARTERIAL BLOOD GASES] Routine Lab 04/09/17 09:10 Completed ARTERIAL BLOOD GASES Stat Lab 04/09/17 07:20 Completed CBC W DIFF Stat Lab 04/09/17 07:50 Completed CMP Stat Lab 04/09/17 07:50 Completed CULTURE,URINE Stat Lab 04/09/17 07:52 Received D-DIMER QUANTITATION Stat Lab 04/09/17 07:50 Completed Lactic Acid Stat Lab 04/09/17 07:20 Completed MAGNESIUM Stat Lab 04/09/17 07:50 Completed NT PRO BNP Stat Lab 04/09/17 07:50 Completed TROPONIN Q3H Lab 04/09/17 07:50 Completed TROPONIN Q3H Lab 04/09/17 11:00 Ordered TROPONIN Q3H Lab 04/09/17 14:00 Ordered TROPONIN Q3H Lab 04/09/17 17:00 Ordered TROPONIN Q3H Lab 04/09/17 20:00 Ordered UA W/ MICROSCOPIC Stat Lab 04/09/17 07:52 Completed BiPap/CPAP Assessment STAT RT 04/09/17 07:51 Active Medication Summary Discontinued Medications Generic Name Dose Route Start Last Admin Trade Name Freq PRN Reason Stop Dose Admin Calcium Gluconate 1,000 mg 04/09/17 11:05 Calcium Gluconate 10% 1000 Mg IV 04/09/17 11:06 STAT ONE Furosemide 40 mg 04/09/17 07:51 04/09/17 08:06 Lasix 40 Mg/4 Ml IV 04/09/17 07:52 40 mg STAT ONE Administration Furosemide Confirm 04/09/17 08:05 Lasix 40 Mg/4 Ml Administered 04/09/17 08:06 Dose 40 mg .ROUTE .[employer]-MED ONE Lab/Rad Data: Laboratory Result Diagrams 04/09/17 07:50 04/09/17 07:50 Laboratory Results 04/09/17 04/09/17 04/09/17 Range/Units 09:10 07:52 07:50 WBC (4.0-10.5) K/mm3 RBC (4.1-5.4) M/mm3 Hgb (12.0-16.0) gm/dl Hct (35-47) % MCV (78-100) fl MCH (26-32) pg MCHC (32-36) g/dl RDW (11.5-14.0) % Plt Count (150-450) K/mm3 MPV (6-9.5) fl Gran % (36.0-66.0) % Lymphocytes % (24.0-44.0) % Monocytes % (0.0-12.0) % Eosinophils % (0.00-5.0) % Basophils % (0.0-0.4) % Basophils # (0-0.4) D-Dimer (0-500) ng/mL Puncture Site RIGHT RADIAL pCO2 81 H* (35-45) mmHg pO2 143 H* (75-100) mmHg Base Excess 8.3 H (-2.0-2.0) O2 Saturation 96.1 (94-100) g/dF ABG pH 7.27 L (7.35-7.45) ABG HCO3 37.2 H* (22-28) ABG O2 Sat (Measured) 99.1 (95-100) % Mike Test YES A-a Gradient 184 a/A Ratio 0.44 Hemoglobin 9.6 Carboxyhemoglobin 1.8 (0.0-6.9) % THgb Methemoglobin 1.2 L (1.4-1.5) % Potassium 5.7 H (3.5-5.1) Temperature 37.0 C POC O2 Flow Rate 60 % Sodium (136-145) mEq/L Chloride (98-107) mEq/L Carbon Dioxide (21-32) mEq/L Anion Gap (5-15) MEQ/L BUN (9-20) mg/dL Creatinine (0.55-1.30) mg/dl Estimated GFR ML/MIN Glucose (70-110) MG/DL Lactic Acid (0.4-2.0) Calcium (8.5-10.1) mg/dL Magnesium (1.8-2.4) mg/dL Total Bilirubin (0.2-1.0) mg/dL AST (15-37) U/L ALT (12-78) U/L Alkaline Phosphatase (46-116) U/L Troponin I 0.056 (0.000-0.056) ng/ml NT-Pro-B Natriuret Pep (0-125) pg/ml Serum Total Protein (6.4-8.2) gm/dL Albumin (3.4-5.0) g/dL Ur Collection Type CATH Urine Color YELLOW (YELLOW) Urine Appearance HAZY (CLEAR) Urine pH 5.0 (5-6) Ur Specific Jackson 1.020 (1.005-1.025) Urine Protein 2000 OR MORE (Negative) Urine Ketones NEGATIVE (NEGATIVE) Urine Blood TRACE LYSED (0-5) Sunny/ul Urine Nitrite NEGATIVE (NEGATIVE) Urine Bilirubin NEGATIVE (NEGATIVE) Urine Urobilinogen NORMAL (0-1) mg/dL Ur Leukocyte Esterase NEGATIVE (NEGATIVE) Urine Microscopic RBC 2-5 (0-2) /HPF Urine Microscopic WBC 5-10 (0-5) /HPF Ur Epithelial Cells MODERATE (FEW) /HPF Amorphous Crystals MODERATE (NEGATIVE) /HPF Urine Bacteria FEW (NEGATIVE) /HPF Hyaline Casts 5-10 (0-2) /LPF Urine Glucose NEGATIVE (NEGATIVE) mg/dL Specimen Received 04/09 0845 04/09/17 04/09/17 04/09/17 Range/Units 07:50 07:50 07:50 WBC 7.7 (4.0-10.5) K/mm3 RBC 3.11 L (4.1-5.4) M/mm3 Hgb 9.5 L (12.0-16.0) gm/dl Hct 30.2 L (35-47) % MCV 97.1 (78-100) fl MCH 30.5 (26-32) pg MCHC 31.5 L (32-36) g/dl RDW 14.4 H (11.5-14.0) % Plt Count 188 (150-450) K/mm3 MPV 11.6 H (6-9.5) fl Gran % 84.1 H (36.0-66.0) % Lymphocytes % 8.4 L (24.0-44.0) % Monocytes % 7.3 (0.0-12.0) % Eosinophils % 0.1 (0.00-5.0) % Basophils % 0.1 (0.0-0.4) % Basophils # 0.01 (0-0.4) D-Dimer 1505 H* (0-500) ng/mL Puncture Site pCO2 (35-45) mmHg pO2 (75-100) mmHg Base Excess (-2.0-2.0) O2 Saturation (94-100) g/dF ABG pH (7.35-7.45) ABG HCO3 (22-28) ABG O2 Sat (Measured) (95-100) % Mike Test A-a Gradient a/A Ratio Hemoglobin Carboxyhemoglobin (0.0-6.9) % THgb Methemoglobin (1.4-1.5) % Potassium 6.1 H* (3.5-5.1) Temperature C POC O2 Flow Rate % Sodium 126 L (136-145) mEq/L Chloride 91 L (98-107) mEq/L Carbon Dioxide 32.7 H (21-32) mEq/L Anion Gap 9.3 (5-15) MEQ/L BUN 28 H (9-20) mg/dL Creatinine 0.90 (0.55-1.30) mg/dl Estimated GFR > 60 ML/MIN Glucose 138 H (70-110) MG/DL Lactic Acid (0.4-2.0) Calcium 9.2 (8.5-10.1) mg/dL Magnesium 1.9 (1.8-2.4) mg/dL Total Bilirubin 0.70 (0.2-1.0) mg/dL AST 32 (15-37) U/L ALT 29 (12-78) U/L Alkaline Phosphatase 56 (46-116) U/L Troponin I (0.000-0.056) ng/ml NT-Pro-B Natriuret Pep > 71150 H (0-125) pg/ml Serum Total Protein 7.4 (6.4-8.2) gm/dL Albumin 3.6 (3.4-5.0) g/dL Ur Collection Type Urine Color (YELLOW) Urine Appearance (CLEAR) Urine pH (5-6) Ur Specific Jackson (1.005-1.025) Urine Protein (Negative) Urine Ketones (NEGATIVE) Urine Blood (0-5) Sunny/ul Urine Nitrite (NEGATIVE) Urine Bilirubin (NEGATIVE) Urine Urobilinogen (0-1) mg/dL Ur Leukocyte Esterase (NEGATIVE) Urine Microscopic RBC (0-2) /HPF Urine Microscopic WBC (0-5) /HPF Ur Epithelial Cells (FEW) /HPF Amorphous Crystals (NEGATIVE) /HPF Urine Bacteria (NEGATIVE) /HPF Hyaline Casts (0-2) /LPF Urine Glucose (NEGATIVE) mg/dL Specimen Received 04/09/17 Range/Units 07:20 WBC (4.0-10.5) K/mm3 RBC (4.1-5.4) M/mm3 Hgb (12.0-16.0) gm/dl Hct (35-47) % MCV (78-100) fl MCH (26-32) pg MCHC (32-36) g/dl RDW (11.5-14.0) % Plt Count (150-450) K/mm3 MPV (6-9.5) fl Gran % (36.0-66.0) % Lymphocytes % (24.0-44.0) % Monocytes % (0.0-12.0) % Eosinophils % (0.00-5.0) % Basophils % (0.0-0.4) % Basophils # (0-0.4) D-Dimer (0-500) ng/mL Puncture Site LEFT RADIAL pCO2 84 H* (35-45) mmHg pO2 90 (75-100) mmHg Base Excess 7.5 H (-2.0-2.0) O2 Saturation 95.2 (94-100) g/dF ABG pH 7.25 L* (7.35-7.45) ABG HCO3 36.8 H* (22-28) ABG O2 Sat (Measured) 98.3 (95-100) % Mike Test Yes A-a Gradient 162 a/A Ratio 0.36 Hemoglobin 10.1 Carboxyhemoglobin 2.0 (0.0-6.9) % THgb Methemoglobin 1.1 L (1.4-1.5) % Potassium 6.5 H* (3.5-5.1) Temperature 37.0 C POC O2 Flow Rate 50 % Sodium (136-145) mEq/L Chloride (98-107) mEq/L Carbon Dioxide (21-32) mEq/L Anion Gap (5-15) MEQ/L BUN (9-20) mg/dL Creatinine (0.55-1.30) mg/dl Estimated GFR ML/MIN Glucose (70-110) MG/DL Lactic Acid 0.9 (0.4-2.0) Calcium (8.5-10.1) mg/dL Magnesium (1.8-2.4) mg/dL Total Bilirubin (0.2-1.0) mg/dL AST (15-37) U/L ALT (12-78) U/L Alkaline Phosphatase (46-116) U/L Troponin I (0.000-0.056) ng/ml NT-Pro-B Natriuret Pep (0-125) pg/ml Serum Total Protein (6.4-8.2) gm/dL Albumin (3.4-5.0) g/dL Ur Collection Type Urine Color (YELLOW) Urine Appearance (CLEAR) Urine pH (5-6) Ur Specific Jackson (1.005-1.025) Urine Protein (Negative) Urine Ketones (NEGATIVE) Urine Blood (0-5) Sunny/ul Urine Nitrite (NEGATIVE) Urine Bilirubin (NEGATIVE) Urine Urobilinogen (0-1) mg/dL Ur Leukocyte Esterase (NEGATIVE) Urine Microscopic RBC (0-2) /HPF Urine Microscopic WBC (0-5) /HPF Ur Epithelial Cells (FEW) /HPF Amorphous Crystals (NEGATIVE) /HPF Urine Bacteria (NEGATIVE) /HPF Hyaline Casts (0-2) /LPF Urine Glucose (NEGATIVE) mg/dL Specimen Received - Progress Progress: improved Air Movement: good Blood Culture(s) Obtained: No Antibiotics given: No Discussed with Dr.: Other (Dr Fong) Counseled pt/family regarding: lab results, diagnosis - Departure Time of Disposition: 11:10 Departure Disposition: Transfer ([facility] ER per DR Fong) Clinical Impression: CHF (congestive heart failure), Pneumonia, Hyperkalemia Condition: Good Critical Care Time: No Referrals: SIRI LEDBETTER [LOCATION] - Instructions: Heart Failure Additional Instructions: You have CHF with pleural effusions. You also have an elevated potassium level. You were given lasix 40 mg and calcium gluconate 1000 mg by IV in the ER. You are being transferred to [facility] ER per DR Fong.
[2017-04-09] MEDS ORDERED: Lasix 40 MG/4 ML IV ONE (07:51)
[2017-04-09 07:59] LABS: A-aADO2 162; ARTERIAL BLD GAS O2 SATURATION 98.3 % (95-100); ARTERIAL BLOOD GAS BASE EXCESS 7.5 (-2.0-2.0); ARTERIAL BLOOD GAS FIO2 50 %; ARTERIAL BLOOD GAS PO2 90 mmHg (75-100); Lactic Acid 0.9 (0.4-2.0)
[2017-04-09 08:00] LABS: ALLEN TEST OK? Yes; ARTERIAL BLOOD GAS pH 7.25 (7.35-7.45)
[2017-04-09] MEDS ORDERED: Lasix 40 MG/4 ML ONE (08:05)
[2017-04-09 08:08] LABS: BASOPHIL % 0.1 % (0.0-0.4); Eosinophil % 0.1 % (0.00-5.0); Granulocytes % 84.1 % (36.0-66.0); Lymphocytes % 8.4 % (24.0-44.0); Mean Cell Volume 97.1 fl (78-100); Mean Corpuscular Hemoglobin 30.5 pg (26-32); Mean Platelet Volume 11.6 fl (6-9.5); Monocytes % 7.3 % (0.0-12.0); Platelet Count 188 K/mm3 (150-450); Red Blood Count 3.11 M/mm3 (4.1-5.4); Red Cell Distribution Width 14.4 % (11.5-14.0); White Blood Count 7.7 K/mm3 (4.0-10.5)
[2017-04-09 08:32] LABS: ALBUMIN 3.6 g/dL (3.4-5.0); ALKALINE PHOSPHATASE 56 U/L (46-116); ANION GAP 9.3 MEQ/L (5-15); BLOOD UREA NITROGEN 28 mg/dL (9-20); CHLORIDE 91 mEq/L (98-107); Carbon Dioxide 32.7 mEq/L (21-32); Glucose 138 MG/DL (70-110); MAGNESIUM 1.9 mg/dL (1.8-2.4); SGOT/AST 32 U/L (15-37); SGPT/ALT 29 U/L (12-78); SODIUM 126 mEq/L (136-145); Total Protein 7.4 gm/dL (6.4-8.2)
[2017-04-09 08:39] LABS: Potassium 6.1 mEq/L (3.5-5.1)
--- NOTE | 2017-04-09 08:43 | XRAY ---
Indication: Short of breath. Unresponsive. Comparison: February 02, 2017. Portable chest demonstrates new moderate right lung infiltrate/atelectasis/effusion, small left effusion, borderline cardiomegaly, and central vascular congestion concerning for cardiac decompensation. Superimposed pneumonia not completely excluded.
[2017-04-09 09:03] LABS: Collection Type CATH; Leukocyte Esterase NEGATIVE (NEGATIVE)
[2017-04-09 09:04] LABS: Bilirubin NEGATIVE (NEGATIVE); Glucose NEGATIVE (NEGATIVE)
[2017-04-09 09:05] LABS: Blood TRACE LYSED Ery/ul (0-5)
[2017-04-09 09:06] LABS: COMPLETE URINE MICROSCOPIC? YES
[2017-04-09 09:07] LABS: ADD URINE CULTURE? YES (NO); Bacteria FEW /HPF (NEGATIVE); Epithelial Cells MODERATE /HPF (FEW)
[2017-04-09 09:19] LABS: A-aADO2 184; ARTERIAL BLD GAS O2 SATURATION 99.1 % (95-100); ARTERIAL BLOOD GAS BASE EXCESS 8.3 (-2.0-2.0); ARTERIAL BLOOD GAS FIO2 60 %; ARTERIAL BLOOD GAS PO2 143 mmHg (75-100); ARTERIAL BLOOD GAS pH 7.27 (7.35-7.45)
[2017-04-09 09:21] LABS: ALLEN TEST OK? YES
--- NOTE | 2017-04-09 10:20 | XRAY ---
Indication: Short of breath. Unresponsive. Elevated d-dimer. Multiple contiguous axial images obtained through the chest using 80 cc Isovue 370 contrast and PE protocol. Comparison: September 02, 2015. There is satisfactory opacification of the pulmonary arteries. However mild respiration artifact limits evaluation of the distal lobar and segmental branches. No filling defect or pulmonary embolus. The heart is now enlarged. Aorta normal in course and caliber. No pathologic mediastinal/hilar lymphadenopathy. Examination of the lung parenchyma demonstrates new large right effusion occupying at least 50% of the hemithorax with complete right lower lobe atelectasis and mild right upper/right middle lobe compressive atelectasis. Also new mild/moderate left effusion with compressive atelectasis. There are also new patchy airspace opacities in both upper lobes, right greater than left. Bony thorax intact again with minimal degenerative changes throughout the spine. Limited upper abdomen demonstrates new small ascites. Stable fatty liver. Impression: 1. Mild respiration artifact. 2. Again grossly negative for pulmonary embolus. 3. New cardiomegaly with bilateral effusions/atelectasis right greater than left favoring cardiac decompensation. Also new small abdominal ascites that may or may not be related. 4. New bilateral upper lobe patchy airspace disease. 5. Stable fatty liver. CT DI 28.14
[2017-04-09 10:42] VITALS: O2SAT 100
[2017-04-09] MEDS ORDERED: Calcium Gluconate 10% 1000 MG IV ONE ×2 (11:05→11:13)
[2017-04-09] MEDS ORDERED: Sodium Chloride 0.9% 100 ML IVPB 100 ML IV ONE (11:15)
[2017-04-09 12:13] VITALS: BP 131/48; PULSE 48
== END 2017-04-09 12:13 | disposition short-term general hospital (02) ==
LOC: ED 07:23
DX: I50.9 Heart failure, unspecified (principal); J18.9 Pneumonia, unspecified organism; E87.5 Hyperkalemia; R40.4 Transient alteration of awareness; R06.02 Shortness of breath; E11.9 Type 2 diabetes mellitus without complications; E03.9 Hypothyroidism, unspecified; I10 Essential (primary) hypertension; Z79.899 Other long term (current) drug therapy; Z86.73 Personal history of transient ischemic attack (TIA), and cerebral infarction without residual deficits
CPT/HCPCS: 36000; 36415; 36600; 51702; 71010; 71260; 80053; 81000; 82375; 82803; 83605; 83735; 83880; 84484; 85025; 85379; 87077; 87086; 87186; 93005; 93041; 94002; 94799; 96374; 99285; J0610; J1940

== ENCOUNTER 2019-01-25 15:21 | Emergency (ER) | payer MEDICARE ==
[2019-01-25 15:34] VITALS: BP 196/72; PULSE 68; O2SAT 100
--- NOTE | 2019-01-25 15:39 | ERPHSYRPT ---
- History of Present Illness Time Seen by Provider: 01/25/19 15:31 Source: patient, EMS Exam Limitations: no limitations Patient Subjective Stated Complaint: alf removed suprapubic catheter and were unable to replace it Triage Nursing Assessment: Pt A&O, hypertensive, denies pain, unable to move legs, fingers bent inward, skin normal and dry, denies any issues Physician History: Pt states, her suprapubic catheter was removed in alf yesterday because it was leaking. They tried to replace it today, unsuccessfully. She denies any complaints, no abdominal pain, nausea, vomiting, fever. Timing/Duration: yesterday Activites at Onset: none Severity of Pain-Max: none Severity of Pain-Current: none Prior abdominal problems: none Allergies/Adverse Reactions: morphine Allergy (Verified 01/25/19 15:34) Penicillins Allergy (Verified 01/25/19 15:34) sulfamethoxazole [From Bactrim] Allergy (Verified 01/25/19 15:34) trimethoprim [From Bactrim] Allergy (Verified 01/25/19 15:34) Home Medications: Aspirin 81 gm Chew [Baby Aspirin 81 mg Chew] 81 mg PO DAILY 12/17/16 [ History] Levothyroxine Sodium [Synthroid] 150 mcg PO DAILY 12/17/16 [History] Loratadine 10 mg [Claritin 10 mg] 10 mg PO DAILY 12/17/16 [History] Lorazepam 1 mg [Ativan 1 MG] 0.5 mg PO BID PRN 12/17/16 [History] Losartan Potassium 50 mg [Cozaar 50 MG] 50 mg PO DAILY 12/17/16 [History] Metformin HCl Xr 500 mg [Glucophage XR 500 MG] 500 mg PO BID 12/17/16 [ History] Pantoprazole Sodium [Protonix] 40 mg PO DAILY 12/17/16 [History] Pravastatin Sodium [Pravachol] 20 mg PO HS 12/17/16 [History] Ranitidine HCl [Zantac] 150 mg PO BID 12/17/16 [History] Sertraline HCl [Zoloft] 100 mg PO DAILY 12/17/16 [History] Amlodipine Besylate 5 mg [Norvasc 5 mg] 5 mg PO DAILY 02/02/17 [History] Nitroglycerin 0.4 mg Tablet [Nitrostat 0.4 MG Tablet] 0.4 mg SL Q5MIN PRN MR X 3 PRN 02/02/17 [History] Magnesium Oxide 400 mg [Mag-Ox 400] 400 mg PO DAILY 04/09/17 [History] Metoprolol Succinate [Toprol Xl] 25 mg PO DAILY 04/09/17 [History] Pantoprazole Sodium [Protonix] 40 mg PO DAILY 04/09/17 [History] Topiramate 25 mg [Topamax 25 MG] 25 mg PO BID 04/09/17 [History] Hx Tetanus, Diphtheria Vaccination/Date Given: Yes Hx Influenza Vaccination/Date Given: Yes Hx Pneumococcal Vaccination/Date Given: Yes - Review of Systems Constitutional: No Symptoms Respiratory: No Symptoms Cardiac: No Symptoms Abdominal/Gastrointestinal: No Symptoms Genitourinary Symptoms: No Symptoms Skin: No Symptoms Neurological: No Symptoms All Other Systems: Reviewed and Negative - Past Medical History Pertinent Past Medical History: Yes Neurological History: No Pertinent History, TIA ENT History: Cataracts Cardiac History: Angina, High Cholesterol, Hypertension Respiratory History: Asthma, Bronchitis, CHF, Pneumonia Endocrine Medical History: Diabetes Type II, Hyperthyroidism Musculoskeletal History: Arthritis GI Medical History: GERD, Gallbladder Disease, Other History: No Pertinent History Psycho-Social History: Anxiety, Depression Female Reproductive Disorders: No Pertinent History, Other Other Medical History: Possible TIA after knee replacement. Chronic frequent diarrhea. yeast infection - Past Surgical History Past Surgical History: Yes Neuro Surgical History: No Pertinent History Cardiac: Cardiac Catheterization Respiratory: No Pertinent History Gastrointestinal: Cholecystectomy Genitourinary: No Pertinent History Musculoskeletal: Joint Replacement, Orthopedic Surgery Female Surgical History: No Pertinent History Other Surgical History: bilateral hip replacement, right knee replacemen, héctor cataracts - Social History Smoking Status: Never smoker Exposure to second hand smoke: No Drug Use: none Patient Lives Alone: No - Female History Hx Now: No - Physical Exam General Appearance: no apparent distress Eye Exam: eyes nml inspection Ears, Nose, Throat Exam: normal ENT inspection, moist mucous membranes Neck Exam: normal inspection, non-tender, supple Respiratory Exam: normal breath sounds, airway intact Cardiovascular Exam: regular rate/rhythm, normal heart sounds, No murmur Gastrointestinal/Abdomen Exam: soft, normal bowel sounds, other (suprapubic catheter site with mild overgranulation, no discharge or bleeding.), No tenderness, No distention, No mass, No guarding, No ecchymosis, No organomegaly Back Exam: normal inspection Extremity Exam: other (severe deformities of both feet and hands due to RA, atrophic mucles.) Neurologic Exam: alert, oriented x 3, normal mood/affect Skin Exam: normal color, warm, dry, No rash, No diaphoresis Lymphatic Exam: No adenopathy SpO2 Interpretation: normal O2 Delivery: Room Air - Course Nursing assessment & vital signs reviewed: Yes - Progress Progress: improved Air Movement: good Progress Note: 01/25/19 15:40 Suprapubic catheter ( 16 Fr Coude ) was replaced by nurse without problem, no severe bleeding or injury noted, it started draining clear, yellow urine immediately. Pt denies any complaints. Blood Culture(s) Obtained: No Antibiotics given: No Counseled pt/family regarding: lab results, diagnosis, need for follow-up - Departure Departure Disposition: Home Clinical Impression: Catheter (urine) change required Condition: Stable Critical Care Time: No Referrals: SIRI LEDBETTER [Primary Care Provider] - Instructions: Urinary Retention (DC) Additional Instructions: Follow up with physician in 2-3 days.
[2019-01-25 16:10] LABS: Appearance CLEAR (CLEAR); Bacteria FEW /HPF (NEGATIVE); Bilirubin NEGATIVE (NEGATIVE); Blood LARGE Ery/ul (0-5); Glucose NEGATIVE (NEGATIVE); Ketones NEGATIVE (NEGATIVE); Leukocyte Esterase MODERATE (NEGATIVE); Mucus SLIGHT /HPF (NEGATIVE); Nitrite NEGATIVE (NEGATIVE); Protein,Urine Dip NEGATIVE (Negative); Specific Gravity 1.003 (1.005-1.025); Urobilinogen NEGATIVE mg/dL (0-1); WBC 26-50 /HPF (0-5)
[2019-01-25 16:11] LABS: Epithelial Cells FEW /HPF (FEW)
== END 2019-01-25 15:57 | disposition home or self-care (01) ==
LOC: ED 15:21
DX: R33.9 Retention of urine, unspecified (principal); Z46.6 Encounter for fitting and adjustment of urinary device; Z79.899 Other long term (current) drug therapy; I50.9 Heart failure, unspecified; E78.00 Pure hypercholesterolemia, unspecified; E11.9 Type 2 diabetes mellitus without complications; E05.90 Thyrotoxicosis, unspecified without thyrotoxic crisis or storm
CPT/HCPCS: 51702; 81001; 87077; 87086; 87186; 99283